=== PATIENT | male | born 1940 | race Caucasian/White ===

== ENCOUNTER 2019-07-27 02:18 | Observation (INO) | payer OTHER ==
[2019-07-27] VITALS (9 sets, daily range): BP systolic 98–141; BP diastolic 55–68
[~2019-07-27] VITALS: Ht 182.9 cm; Wt 108.9 kg
[~2019-07-27 02:18] MED LIST: ALLOPURINOL100 MG PO; DIGOXIN125 MCG PO; DOXAZOSIN MESYLA2 MG PO; FINASTERIDE5 MG PO; GLIPIZIDE5 MG PO; ISOSORBIDE MONO20 MG PO; LEVAQUIN500 MG PO; LISINOPRIL-HCT1 EAC1 PO; METOPROLOL SUCC50 MG PO; MONOPRIL PO; NIFEDICAL XL30 MG PO; NORCO 7.5-3251 EACH PO; OMEPRAZOLE20 MG PO; PLAVIX75 MG PO; SIMVASTATIN40 MG PO; XANAX0.5 MG PO
[2019-07-27] MEDS ORDERED: ASPIRIN 81 MG CHEW TAB PO ONE (02:30)
--- NOTE | 2019-07-27 02:30 | NUR ---
SONYA BP 121/74, FRIDA BP 133/74
[2019-07-27 02:35] LABS: BASOPHILS # (AUTO) 0.1 (0.0-0.1); BASOPHILS % 0.7 % (0.0-1.0); EOSINOPHILS # (AUTO) 0.3 (0.0-0.4); EOSINOPHILS % 4.9 % (0.0-6.0); HEMATOCRIT 48.4 % (38.2-49.6); HEMOGLOBIN 16.4 g/dL (14.0-18.0); LYMPHOCYTES # (AUTO) 2.5 (1.0-3.2); LYMPHOCYTES % 36.1 % (18.0-39.1); MEAN CORPUSCULAR HEMOGLOBIN 30.5 pg (28-32); MEAN CORPUSCULAR HGB CONC 33.9 g/dL (31-35); MEAN CORPUSCULAR VOLUME 90.1 fL (81-99); MONOCYTES # (AUTO) 0.7 (0.2-0.8); MONOCYTES % 10.8 % (4.4-11.3); NEUTROPHILS # (AUTO) 3.2 (2.1-6.9); NEUTROPHILS % 47.2 % (38.7-80.0); PLATELET COUNT 124 x10e3/uL (140-360); RED BLOOD COUNT 5.37 x10e6/uL (4.3-5.7)
[2019-07-27 02:41] LABS: INR 0.97; PROTHROMBIN TIME 13.1 seconds (11.9-14.5)
[2019-07-27 02:42] LABS: PARTIAL THROMBOPLASTIN TIME 33.5 seconds (23.8-35.5)
[2019-07-27] MEDS ORDERED: ONDANSETRON HCL INJ 2MG/ML 2ML 2 MG/ML VIAL IV STA (02:48)
--- NOTE | 2019-07-27 02:50 | NUR ---
Pt provided with urinal at bedside, informed of need to collect urine specimen for analysis, verbalized understanding.
[2019-07-27 02:53] LABS: ALANINE AMINOTRANSFERASE 13 IU/L (0-55); ALBUMIN 3.8 g/dL (3.5-5.0); ALBUMIN/GLOBULIN RATIO 1.2 (0.8-2.0); ALKALINE PHOSPHATASE 99 IU/L (40-150); ANION GAP 17.2 mmol/L (8-16); BLOOD UREA NITROGEN 16 mg/dL (7-26); BUN/CREATININE RATIO 15 (6-25); CALCIUM 9.2 mg/dL (8.4-10.2); CARBON DIOXIDE 23 mmol/L (22-29); CHLORIDE 107 mmol/L (98-107); CREATINE KINASE 60 IU/L (30-200); CREATININE, SERUM 1.06 mg/dL (0.72-1.25); EST GLOMERULAR FILTRATION RATE > 60 ML/MIN (60-); GLUCOSE 129 mg/dL (74-118); POTASSIUM 4.2 mmol/L (3.5-5.1); SODIUM 143 mmol/L (136-145)
[2019-07-27] MEDS ORDERED: MORPHINE SULFATE INJ 4 MG/ML INJ 1ML ONE (02:59)
[2019-07-27] MEDS ORDERED: MORPHINE SULFATE 5 MG/ML VIAL IV ONE (03:00)
--- NOTE | 2019-07-27 03:05 | Diagnostic Imaging Report ---
EXAMINATION: CHEST SINGLE (PORTABLE) COMPARISON: None INDICATION: Chest pain, epigastric pain ^CHEST PAIN ^[id number] ^0240 ^Y DISCUSSION: Frontal view of the chest obtained at 0242 hours. HEART AND MEDIASTINUM: The heart is top normal in size. LINES: None. LUNGS: Patchy right basilar airspace opacity. Left lung is clear. No interstitial edema. PLEURA: No pleural effusion or pneumothorax. BONES AND SOFT TISSUES: Median sternotomy wires are intact. The soft tissues are normal. IMPRESSION: Right basilar airspace opacity may represent atelectasis or pneumonia. Postoperative changes of the mediastinum. Signed by: Dr. Junaid Hooper MD on 07/27/2019 3:03 AM
[2019-07-27] MEDS ORDERED: IOPAMIDOL 370 MG/ML 200 ML INFUS..BTL INJ ONE ×2 (03:20→05:15)
[2019-07-27] MEDS ORDERED: SODIUM CHLORIDE 0.9% 50ML 50 ML ONE (03:20)
--- NOTE | 2019-07-27 03:55 | NUR ---
Pt reminded of need to obtain UA, verbalized understanding.
[2019-07-27] MEDS ORDERED: AZITHROMYCIN 500MG/NS 250 ML 250 ML IV STA (04:01)
[2019-07-27] MEDS ORDERED: CEFTRIAXONE SOD 1 GM/NS 50 ML 50 ML IV ONE (04:15)
[2019-07-27 04:40] LABS: BILIRUBIN,URINE NEGATIVE (NEGATIVE); CLARITY,URINE CLEAR (CLEAR); COLOR,URINE YELLOW (YELLOW); KETONES,URINE NEGATIVE (NEGATIVE); LEUKOCYTE ESTERASE ,URINE NEGATIVE (NEGATIVE); NITRITE,URINE NEGATIVE (NEGATIVE); PROTEIN,URINE DIPSTICK NEGATIVE (NEGATIVE); URINE UROBILINOGEN 4 mg/dL (0.2 - 1)
[2019-07-27 04:41] LABS: BACTERIA,URINE FEW /HPF; EPITHELIAL CELLS,URINE MODERATE /LPF; WBC,URINE (MAN) 0-5 /HPF (0-5)
--- NOTE | 2019-07-27 04:45 | Diagnostic Imaging Report ---
Chest, Abdomen and Pelvis CTA WITH AND WITHOUT IV CONTRAST. INDICATION: Chest pain COMPARISON: Chest radiograph of the same day. TECHNIQUE: The chest, abdomen and pelvis were scanned utilizing a multidetector helical scanner from the thoracic inlet to the pubic symphysis before and after administration of IV contrast. Coronal and sagittal reformations were obtained. 3D post-processing of the images was performed, and the post-processed images were used in interpretation. CTA dissection protocol was performed. IV CONTRAST: 100mL of Isovue 370 ORAL CONTRAST: Water RADIATION DOSE: Total DLP: 1864.8 mGy*cm FINDINGS: I agree with the findings provided in the preliminary report. There are no additional significant findings to report. IMPRESSION: No aortic dissection or aneurysm. No central PE. Lingular 4mm pulmonary nodule. If the patient is high risk, followup chest CT is optional at 12 months. If the patient is low risk, no further follow-up imaging is necessary. PRELIMINARY REPORT: 1. No evidence of mural hematoma, displaced intimal calcification, or retroperitoneal hemorrhage. 2. No evidence of aortic dissection or aneurysmal dilatation. No occluded arterial vessels in the chest, abdomen, or pelvis. 3. 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 The heart is enlarged with subendothelial calcifications of the left ventricle, the result of remote infarct. Mild burden of atherosclerotic plaque throughout the arterial system. 4. No filling defects in the pulmonary arteries. 5. Diffuse pulmonary hyperinflation suggestive of small airways disease. Subsegmental atelectasis in the right lower lobe. Noncalcified nodule in the lingula measuring 4 mm. 6. Single right kidney. No calculus. Lower pole cyst measures 9 mm. There is excreted contrast in the collecting system without filling defect. The ureter is normal in diameter throughout its course. 7. No evidence for bowel obstruction or inflammation. No CT evidence of mesenteric ischemia. 8. Prostate hypertrophy and bladder wall thickening suggestive of outlet obstruction. 9. Nonspecific paracaval lymph nodes measure up to 10 mm. 10. Low attenuating lesion in the proximal pancreas tail measures 3 to 4 mm, either a cyst or IPMN. No pancreas duct dilatation. 11. Sebaceous cyst in the posterior pelvis is partially calcified and measures 17 mm. 12. A full report will be dictated later in the A.M. Signed by: Anish Edwards MD on 07/27/2019 12:19 PM
--- OUTSIDE RECORDS SUMMARY | 2019-07-27 05:01 | XMS REPORT ---
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 Allergies, Adverse Reactions, Alerts This patient has no known allergies or adverse reactions. Medications This patient has no known medications. Results Test Description Test Time Test Comments Text Results Atomic Results Result Comments CHEST SINGLE (PORTABLE) 2019-07-27 02:58:00 [facility] [address] [place] [address] Patient Name: BAILEY RICHARDS MR #: [id number] : 1940 Age/Sex: 79/M Req #: [id number] Adm Physician: Ordered by: SABIHA TANG DO Report #: [id number] Location: ER Room/Bed: Procedure: [id number] DX/CHEST SINGLE (PORTABLE) Exam Date: 07/27/19 Exam Time: 0240 REPORT STATUS: Signed EXAMINATION: CHEST SINGLE (PORTABLE) COM PARISON: None INDICATION: Chest pain, epigastric pain CHEST PAIN [id number] 0240 Y DISCUSSION: Frontal view of the chest obtained at 0242 hours. HEART AND MEDIASTINUM: The heart is top normal in size. LINES: None. LUNGS: Patchy right basilar airspace opacity. Left lung is clear. No interstitial edema. PLEURA: No pleural effusion or pneumothorax. BONES AND SOFT TISSUES: Median sternotomy wires are intact. The soft tissues are normal. IMPRESSION: Right basilar airspace opacity may represent atelectasis or pneumonia. Postoperative changes of the mediastinum. Signed by: Dr. Mandy Hooper MD on 07/27/2019 3:03 AM Dictated By: MANDY HOOPER MD 2 Transcribed By: ARLINE on 07/27/19302 COPY TO: SABIHA TANG DO
[2019-07-27] MEDS ORDERED: SODIUM CHLORIDE 0.9% 50ML 100 ML ONE (05:15)
[2019-07-27 06:43] LABS: CREATINE KINASE MB 0.8 ng/mL (0-5.0)
[2019-07-27] MEDS ORDERED: GLIPIZIDE5 MG PO (09:28)
[2019-07-27] MEDS ORDERED: GLIPIZIDE 5 MG TAB PO PRN (14:15)
[2019-07-27] MEDS ORDERED: DEXTROSE 50% SYRINGE 50 ML IV PRN (15:30)
[2019-07-27] MEDS ORDERED: METOPROLOL SUCCINATE 50 MG TAB XL PO SCH (17:00)
[2019-07-27] MEDS ORDERED: ENOXAPARIN 30 MG/0.3 ML SYR SC SCH (17:00)
[2019-07-27 19:25] LABS: CREATINE KINASE 50 IU/L (30-200)
--- NOTE | 2019-07-27 20:09 | NUR ---
RECEIVED PT IN BED AOX3 .RESPIRATIONS ARE EVEN AND UNLABORED .DENIES PAIN .PT REFUSED BED ALARM CALL LIGHT WITH IN REACH .CONTINUE TO MONITOR
[2019-07-27] MEDS ORDERED: SIMVASTATIN 40 MG TAB PO SCH (21:00)
--- NOTE | 2019-07-27 22:15 | History and Physical ---
CHIEF COMPLAINT: Abdominal pain. HISTORY OF PRESENT ILLNESS: This is a 79-year-old male, very-very poor historian, history of significant cardiac disease status post CABG in the past. He presents to the ED with complaints of abdominal pain and questionable chest pain. The patient reports he was in his usual state of health and suddenly began to have excruciating abdominal pain. He reports he had similar findings about a month ago, which he was at [facility]. He reports at that time it was chest pain. They said they did some blood work and was discharged to home. Apparently, he was admitted in the hospital. He now presents with similar findings. He currently is a very poor historian. He states it is epigastric pain, then he states to me chest pain, then he states to me shoulder pain, then he states to me it could be back pain. He states that he could not describe it. He does not know how to describe it either a sharp pain or neuropathic pain. After further interview, it seems that the patient is complaining more of a lower lumbar back pain. He states that it starts there and then kind of radiates to his abdomen. No reports of any nausea, vomiting, or any fever at home. The patient is seen and evaluated at bedside on the medical floor. He is currently doing well with no other issues at this time. REVIEW OF SYSTEMS: Pertinent positives: Lumbar back pain that radiates to his abdomen. Pertinent negatives: Denies any palpitation, nausea, vomiting, diarrhea, dysuria, hematuria, frequency, urgency, lightheadedness, dizziness, headaches, shortness of breath, cough, congestion, fever, or any other complaints. The rest of 14-point review of systems have been reviewed with the patient and are negative. ALLERGIES: NO KNOWN DRUG ALLERGIES. HOME MEDICATIONS: 1. Plavix. 2. Digoxin. 3. Doxazosin. 4. Finasteride. 5. Glipizide. 6. Isosorbide mononitrate. 7. Metoprolol. 8. Nifedipine. 9. Omeprazole. 10. Simvastatin. 11. Xanax. 12. Allopurinol. PAST MEDICAL HISTORY: Has history of coronary artery disease with coronary artery bypass grafting in the past, type 2 diabetes, hypertension, acid reflux, hyperlipidemia. PAST SURGICAL HISTORY: Had CABG in the past. SOCIAL HISTORY: No drugs. No alcohol. Does not smoke. FAMILY HISTORY: Hypertension, diabetes. PHYSICAL EXAMINATION: VITAL SIGNS: Temperature is 98, pulse 76, respiratory rate is 20, blood pressure 120/61, pulse ox 96% on room air. LABORATORY FINDINGS: Show white count 6.8, hemoglobin 16, hematocrit 48, platelets of 124. Coagulation; PT 13, INR 0.97, PTT 33. Chemistry, sodium 143, potassium 4.2, chloride 107, bicarb 23, anion gap of 17. BUN is 16, creatinine is 1, glucose is 129, calcium is 9.2, total bilirubin is 2.2. LFTs within normal range. Troponins are negative. BNP 185. Total protein 6.9, albumin is 3.8. Urinalysis was negative. Alcohol level was negative. IMAGING STUDIES: Chest x-ray, right basilar airspace opacity measures atelectasis or pneumonia. CTA chest, thorax including abdomen and pelvis reports no evidence of a mural hematoma displacing intimal calcification or retroperitoneal hemorrhage. No evidence of aortic dissection or aneurysmal dilatation. No fluid or arterial vessels in the chest, abdomen, or pelvis . There are some postoperative changes of further cardiac bypass. No filling defects in the pulmonary arteries. Diffuse pulmonary hyperinflation suggestive of small airway disease. There is some atelectasis seen. There is some single right kidney. No calculus. There is a lower pole cyst seen. No evidence of bowel obstruction or inflammation. No CT evidence of mesenteric ischemia. Prostate benign prostatic hyperplasia with bladder-wall thickening suggestive of outlet obstruction. There is a paracaval lymph node measuring 10 mm. It needs outpatient followup as an outpatient. Also shows a pancreatic cyst. Needs an outpatient followup, which I discussed with the patient. OBJECTIVE: GENERAL: Not in acute distress, alert and oriented x3. Cooperative upon examination. HEENT: Head is normocephalic, atraumatic. Eyes; pupils are equal and reactive to light bilaterally. Extraocular movements are intact bilaterally. NECK: Supple. Good range of motion. Throat, no evidence of any erythema or exudates in the posterior pharynx. Has poor dentition. PULMONARY: Clear to auscultation bilaterally. No wheezing, rales, or rhonchi. No crackles appreciated. CARDIOVASCULAR: Positive S1 and S2. No murmurs, rubs, or gallops appreciated. ABDOMEN: Soft, nondistended, nontender to palpation. Bowel sounds present. MUSCULOSKELETAL: Strength is 5/5 throughout. No evidence of any muscle deficits on examination. No weakness appreciated. NEUROLOGIC: Cranial nerves 2 through 12 grossly intact. No evidence of any neurologic deficits on exam. SKIN: Intact. Warm to touch. Good cap refill. PSYCHIATRIC: Normal affect and mood. EXTREMITIES: No edema. Good range of motion throughout. IMPRESSION: 1. Chest pain, likely atypical in nature, but has a history of coronary artery disease in the past. 2. Lumbar back pain, likely with radiculopathy that radiates to his abdomen. 3. Type 2 diabetes. 4. Benign prostatic hyperplasia. 5. Pancreatic cyst. Needs further workup as an outpatient. 6. Hypertension. PLAN: At this time, after interviewing the patient more closely, it seemed that his pain is likely a radicular pain, likely from lower lumbar back pain that radiates to his abdomen. We will trend his cardiac enzymes for now, which so far have been found to be negative. Cardiology was consulted for further management and care. He is on cardioprotective medications. I did order an MRI of the lumbar spine to further evaluate this further. He is currently doing very well with no other issues. We are going to resume same home medications with no changes. Continue with same antihypertensive medications. Get PT and OT evaluation. Put on Lovenox for DVT prophylaxis. Has 1st pancreatic cyst. Needs outpatient followup with GI, which I discussed this with the patient very closely and thoroughly and he verbalized understanding to follow up with a GI specialist. As for his BPH, he is already on finasteride and doxazosin. We will continue to monitor this very closely per bladder scans p.r.n. PT, OT evaluation. Lovenox for DVT prophylaxis. Discussed plan of care with the patient at bedside with nursing staff present. MD SAM Boles/MODL /[id number]
[2019-07-28 00:39] VITALS: BP 114/71
[2019-07-28 04:00] VITALS: BP 122/84
[2019-07-28 05:58] LABS: CHOL/HDL RATIO 4.1 (3.9-4.7)
--- NOTE | 2019-07-28 06:25 | NUR ---
PT RESTED DURING THE NIGHT .DENIES PAIN .CALL LIGHT WITH EACH .CONTINUE TO MONITOR
--- NOTE | 2019-07-28 07:00 | NUR ---
bedside rounds done. pt is alert resting in bed, no s/s of distress. call light within reach and instructed PT to call RN for help.
--- NOTE | 2019-07-28 07:28 | NUR ---
BEDSIDE REPORT GIVEN TO THE ONCOMING NURSE
[2019-07-28] MEDS ORDERED: PANTOPRAZOLE SOD 40 MG TABEC PO SCH (07:30)
--- NOTE | 2019-07-28 08:51 | Diagnostic Imaging Report ---
MRI SPINE LUMBAR WO HISTORY: Lumbar back pain COMPARISON: CTA of the abdomen/pelvis 07/27/2019 TECHNIQUE: Sagittal T1, sagittal T2, sagittal STIR, axial T2, coronal T2, and axial proton density weighted images of the lumbar spine were obtained without contrast. DISCUSSION: Number of non-rib bearing lumbar vertebral bodies: 5. Alignment: Normal lordosis. Mild lumbar levoscoliosis is centered at L3-L4. Vertebrae: No definite evidence for acute fracture or neoplasm. Mild compression deformity of the T11 vertebral body is not associated with significant marrow edema or retropulsion; this is likely chronic. A few scattered small nodular T1 hyperintense vertebral body lesions are benign hemangiomas. Conus medullaris: Normal, ends at L2. Cauda equina: No masses or arachnoiditis. Posterior paraspinal muscles: Well preserved. Posterior incision signal changes. Soft tissues: Approximately 1.7 cm hypointense nodular cutaneous/subcutaneous lesion in the right paramedian back at L4-L5 may be an inclusion cyst. The left kidney is absent. A few small T2 hyperintense lesions in the right kidney are likely cysts. Mild to moderate multilevel disc degeneration is most prominent at L5-S1. There are nonspecific minimal inflammatory endplate changes on the right at L3-L4 and at T10-T11. T10-T11: Minimal disc bulge without significant canal stenosis. The neural foramina are incompletely imaged. T11-T12: Mild canal stenosis due to disc bulge. No significant foraminal stenosis. T12-L1: Patent canal and foramina. L1-L2: Mild canal stenosis due to disc bulge and ligamentum flavum thickening. No significant foraminal stenosis. L2-L3: Mild canal stenosis due to disc bulge and ligamentum flavum thickening. Both lateral recesses are slightly effaced. Moderate right and mild left foraminal stenoses due to disc bulge and facet arthrosis. L3-L4: Moderate canal stenosis due to disc bulge and ligamentum flavum thickening. Both lateral recesses are effaced. Severe right and mild to moderate left foraminal stenoses due to disc bulge and facet arthrosis. The exiting right L3 nerve root is likely impinged. L4-L5: Laminectomy level without significant central canal stenosis. Moderate to severe right and mild to moderate left foraminal stenoses due to disc bulge and facet arthrosis. The exiting right L4 nerve root is likely impinged. L5-S1: Mild canal stenosis due to disc bulge and superimposed right central disc protrusion. The right lateral recess is effaced and the descending right S1 nerve root is impinged. Mild to moderate right and moderate left foraminal stenoses due to disc bulge and facet arthrosis. IMPRESSION: 1. Mild to moderate multilevel disc degeneration, most prominent at L5-S1, with mild lumbar levoscoliosis. Nonspecific minimal inflammatory endplate changes at L3-L4 and T10-T11. 2. Laminectomy changes at L4-L5. 3. Multilevel degenerative canal stenoses - moderate at L3-L4. 4. Small right L5-S1 central disc protrusion impinges upon the descending right S1 nerve root. 5. Multilevel degenerative foraminal stenoses - moderate on the right at L2-L3: severe on the right at L3-L4; moderate to severe on the right at L4-L5; moderate on the left at L5-S1. Signed by: Dr. Oliver Mendoza M.D. on 07/28/2019 8:48 AM
[2019-07-28] MEDS ORDERED: ISOSORBIDE MONONITRATE 20 MG TAB PO SCH (09:00)
[2019-07-28] MEDS ORDERED: METOPROLOL SUCCINATE 25 MG TAB XL PO SCH (09:00)
[2019-07-28] MEDS ORDERED: CLOPIDOGREL BISULFATE 75 MG TAB PO SCH (09:00)
[2019-07-28] MEDS ORDERED: NIFEDIPINE CR 30 MG TAB PO SCH (09:00)
[2019-07-28] MEDS ORDERED: FINASTERIDE 5 MG TAB PO SCH (09:00)
[2019-07-28] MEDS ORDERED: DOXAZOSIN MESYLATE 2 MG TAB PO SCH (09:00)
[2019-07-28] MEDS ORDERED: DIGOXIN 0.125 MG TAB PO SCH (09:00)
[2019-07-28 10:01] VITALS: BP 139/88
--- NOTE | 2019-07-28 13:28 | Consultation ---
DATE OF CONSULTATION: 07/28/2019 Cardiology Consult HISTORY OF PRESENT ILLNESS: Mr. Deacon Muniz is a 79-year-old male with primary history of CAD with previous CABG, hypertension, diabetes, hyperlipidemia, and GERD, admitted complaining of excruciating pain that started in the mid back, radiating to the lower chest and upper abdominal area, aggravated with changing from a sitting to a lying position while he was in his recliner at home. The pain lasted about 3 hours, which is unrelieved with hydrocodone he took one pill. The patient reports was profusely sweating and nauseated, but denies dizziness or palpitations. PAST MEDICAL HISTORY: CAD with previous CABG, hypertension, diabetes, hyperlipidemia, GERD, Gout, arthritis, and BPH. PAST SURGICAL HISTORY: He had a lower back surgery. FAMILY HISTORY: Both parents are , of heart attacks. SOCIAL HISTORY: He is a non tobacco, non alcohol, or recreational drug use. ALLERGIES: NO KNOWN ALLERGIES. HOME MEDICATIONS: Includes metoprolol succinate 50 mg every day or daily, nifedipine 30 mg daily. He also takes digoxin 0.125 mg daily. He takes clopidogrel or Plavix 75 mg daily. He also takes isosorbide 20 mg daily and glipizide 5 mg daily. Doxazosin 2 mg daily, allopurinol 100 mg daily, omeprazole 20 mg daily, simvastatin 40 mg, finasteride 5 mg daily. PHYSICAL EXAMINATION: VITAL SIGNS: Current vital signs include temperature 97.9, heart rate 63, 20 of respiration, 139/88 blood pressure, 96% on room air. GENERAL: The patient is well developed, well nourished, no acute respiratory distress. SKIN: Normal in appearance, texture, and temperature, warm and dry. HEENT: Cranium is normocephalic and atraumatic. His pupils are equally reactive to light and accommodation. Sclerae anicteric. Ears are normal. Throat is clear. NECK: Supple. Full range of motion. No cervical lymphadenopathy. No thyromegaly. No JVD. RESPIRATORY: Normal respiratory effort. LUNGS: Clear to auscultation bilaterally with diminished or decreased air entry at the bases. CARDIOVASCULAR: S1 and S2 audible. Regular rate and rhythm. No significant murmurs heard. GASTROINTESTINAL: Soft, nontender, nondistended. Bowel sounds are present. EXTREMITIES: Trace edema to bilateral lower extremities. Pulses are palpable +1 throughout. NEUROLOGIC: Motor and sensory examination of the upper and lower extremities normal. Reflexes are normal and symmetrical bilaterally. IMPRESSION AND PLAN: The patient Cristy is a 79-year-old, admitted for excruciating mid back pain that radiated to the lower chest area and upper abdominal area, likely atypical in nature. Troponin x3 sets were negative, and EKG was nonischemic, although 2nd EKG showed Mobitz type 2 and another one showed first-degree AV block. PLAN: 1. Echocardiogram. 2. Discontinue digoxin and decrease dose of metoprolol p.o. Please continue to monitor for progression of heart block. 3. Further recommendation depends on clinical course. We will continue to follow. Thank you for the consultation. Dictated by Estela Campbell NP Benson De Dios MD WZA/SONA /[id number]
--- NOTE | 2019-07-29 02:31 | Discharge Summary ---
PRIMARY CARE PHYSICIAN: Dr. Mikayla Bauer. ENTRY LEVEL RECEPTIONIST: Dr. Benson De Dios. FINAL DIAGNOSIS: Midback pain radiating to the front area consistent with degenerative disk disease in the thoracic and lumbar spine. SUMMARY: This is a 79-year-old male with radiating pain. The patient is pain free now. No chest pain. No shortness of breath. The patient stating that the pain is burning sensation from the mid back area and also low back area radiating to the front area. The patient had workup done. Negative for cardiac problem. The patient has been cleared by Dr. Benson De Dios. I discussed with the patient at length. He did have an MRI of the lumbar spine showed consistent with degenerative disk disease with foraminal stenosis. He did have laminectomy in the past. He may have T-spine problem as well, but currently the patient is pain free. Therefore, no further workup needed at this time. The patient was at [employer] when he happened to have the pain. I discussed with the patient at length. We will start the patient on Neurontin 100 mg 3 times a day and Tylenol No.3 as needed for pain. The patient will need pain management and further workup as an outpatient. I discussed with the patient at length. The patient is stable and discharged home today. MD SAM Barnhart/MODL /[id number]
== END 2019-07-28 11:14 | disposition home or self-care (01) ==
LOC: ER 02:18 → ERHOLD 04:58 → MED/SURG2 06:40
PROVIDERS: ADMIT Internal Medicine; ATTEND Internal Medicine
DX: R07.89 Other chest pain (principal); M47.816 Spondylosis without myelopathy or radiculopathy, lumbar region; E11.9 Type 2 diabetes mellitus without complications; N40.0 Benign prostatic hyperplasia without lower urinary tract symptoms; I10 Essential (primary) hypertension; K86.2 Cyst of pancreas; M54.5 Low back pain; I25.10 Atherosclerotic heart disease of native coronary artery without angina pectoris; Z95.1 Presence of aortocoronary bypass graft; K21.9 Gastro-esophageal reflux disease without esophagitis; E78.5 Hyperlipidemia, unspecified; Z82.49 Family history of ischemic heart disease and other diseases of the circulatory system; Z87.442 Personal history of urinary calculi; Q60.0 Renal agenesis, unilateral; N28.1 Cyst of kidney, acquired
CPT/HCPCS: 36415; 71045; 71275; 72148; 74174; 80053; 80061; 80320; 81001; 82550; 82553; 82948; 83880; 84484; 85025; 85610; 85730; 93005; 99285; G0378; J0456; J0696; J1650; J2270; J2405; Q9967

== ENCOUNTER → 2019-09-03 | Day surgery (SDC) | payer OTHER ==
[2019-08-24 16:59] LABS: BASOPHILS # (AUTO) 0.1 (0.0-0.1); BASOPHILS % 0.8 % (0.0-1.0); EOSINOPHILS # (AUTO) 0.5 (0.0-0.4); EOSINOPHILS % 5.7 % (0.0-6.0); HEMATOCRIT 46.6 % (38.2-49.6); HEMOGLOBIN 15.6 g/dL (14.0-18.0); LYMPHOCYTES % 24.9 % (18.0-39.1); MEAN CORPUSCULAR HEMOGLOBIN 30.8 pg (28-32); MEAN CORPUSCULAR HGB CONC 33.5 g/dL (31-35); MEAN CORPUSCULAR VOLUME 92.1 fL (81-99); MONOCYTES # (AUTO) 0.7 (0.2-0.8); MONOCYTES % 8.7 % (4.4-11.3); NEUTROPHILS # (AUTO) 4.7 (2.1-6.9); NEUTROPHILS % 59.4 % (38.7-80.0); PLATELET COUNT 155 x10e3/uL (140-360); RED BLOOD COUNT 5.06 x10e6/uL (4.3-5.7); RED CELL DISTRIBUTION WIDTH 13.8 % (11.7-14.4)
[2019-08-24 17:14] LABS: ANION GAP 13.2 mmol/L (8-16); CALCIUM 9.5 mg/dL (8.4-10.2); CREATININE, SERUM 1.32 mg/dL (0.72-1.25); POTASSIUM 4.2 mmol/L (3.5-5.1)
[~2019-09-03] MED LIST changes: +BUPIVACAINE HC 0.75% PF 10ML VIAL INJ ONE; +CHONDR SU A NA/HYALUR SOD 1 EACH KIT IO ONE; +CYCLOPENTOLATE HCL 2% OPTH SOLN 2 ML BTL OP ONE; +EPINEPHRINE HCL 1:1000 1ML 1 MG/ML AMP ONE; +GATIFLOXACIN(OPTH) 5 ML LIQD ONE; +LIDOCAINE 2% /EPINEPHRINE 20 ML SDV INJ ONE; +LIDOCAINE HCL 2% LOCAL INJ 5 ML SDV VIAL INJ ONE; +LIDOCAINE HCL-PF 4% 40 MG/1 ML 5ML AMP ONE; +PANTOPRAZOLE SO40 MG PO; +PHENYLEPHRINE HCL 2 ML DROPS ONE; +PILOCARPINE HCL(OPTH) 15 ML LIQD ONE; +POVIDONE IODINE 5% (OPTH) 30 ML BTL ONE; +PROPOFOL IV EMULSION 10 MG/ML 20 ML VIAL ONE; +TESTOSTERO100 MG/1 M INJ; +TOBRAMYCIN/DEXAMETHASONE(OPTH) 3.5 GM TUBE ONE
[2019-09-03 10:25] VITALS: BP 144/76
== END | disposition home or self-care (01) ==
LOC: OR 06:36
PROVIDERS: ATTEND Ophthalmology
DX: H25.11 Age-related nuclear cataract, right eye (principal); I10 Essential (primary) hypertension; E11.9 Type 2 diabetes mellitus without complications; I44.4 Left anterior fascicular block; M54.9 Dorsalgia, unspecified; M54.2 Cervicalgia; I25.810 Atherosclerosis of coronary artery bypass graft(s) without angina pectoris; I25.2 Old myocardial infarction; N20.0 Calculus of kidney; Z79.02 Long term (current) use of antithrombotics/antiplatelets; Z79.84 Long term (current) use of oral hypoglycemic drugs; Z87.891 Personal history of nicotine dependence; Z95.1 Presence of aortocoronary bypass graft
CPT/HCPCS: 36415; 80048; 82948; 85025; J0171; J2001; V2632

== ENCOUNTER → 2019-12-10 | Day surgery (SDC) | payer OTHER ==
[2019-12-07 12:52] LABS: BASOPHILS # (AUTO) 0.1 (0.0-0.1); EOSINOPHILS # (AUTO) 0.3 (0.0-0.4); EOSINOPHILS % 4.1 % (0.0-6.0); HEMATOCRIT 50.6 % (38.2-49.6); HEMOGLOBIN 16.5 g/dL (14.0-18.0); LYMPHOCYTES % 24.7 % (18.0-39.1); MEAN CORPUSCULAR HGB CONC 32.6 g/dL (31-35); MONOCYTES # (AUTO) 0.7 (0.2-0.8); MONOCYTES % 8.5 % (4.4-11.3); NEUTROPHILS % 61.2 % (38.7-80.0); PLATELET COUNT 110 x10e3/uL (140-360); RED CELL DISTRIBUTION WIDTH 13.7 % (11.7-14.4)
[2019-12-07 13:05] LABS: ANION GAP 14.9 mmol/L (8-16); CALCIUM 9.1 mg/dL (8.4-10.2); CREATININE, SERUM 1.25 mg/dL (0.72-1.25); POTASSIUM 3.9 mmol/L (3.5-5.1)
[~2019-12-10] MED LIST changes: +BALANCED SALT SOLN (OPTH) 15 ML BTL IO ONE; +FENTANYL CITRATE/PF 100MCG/2 ML INJ ONE; +MIDAZOLAM HCL 2 MG/2 ML VIAL ONE; +muscle relaxer PO
[2019-12-10 09:40] VITALS: BP 111/75
== END | disposition home or self-care (01) ==
LOC: OR 05:24
PROVIDERS: ATTEND Ophthalmology
DX: H25.12 Age-related nuclear cataract, left eye (principal); F41.9 Anxiety disorder, unspecified; I25.810 Atherosclerosis of coronary artery bypass graft(s) without angina pectoris; E11.9 Type 2 diabetes mellitus without complications; K21.9 Gastro-esophageal reflux disease without esophagitis; I49.3 Ventricular premature depolarization; I10 Essential (primary) hypertension; Z01.810 Encounter for preprocedural cardiovascular examination; Z01.812 Encounter for preprocedural laboratory examination; Z11.59 Encounter for screening for other viral diseases; Z79.02 Long term (current) use of antithrombotics/antiplatelets; Z79.84 Long term (current) use of oral hypoglycemic drugs; Z95.1 Presence of aortocoronary bypass graft
CPT/HCPCS: 36415; 80048; 82948; 85025; 93005; J0171; J2001; J2250; J3010; U0002; V2632

== ENCOUNTER 2020-04-12 16:37 | Inpatient (IN) | payer OTHER ==
[~2020-04-12] VITALS: Ht 182.9 cm; Wt 89.8 kg
[~2020-04-12 16:37] MED LIST changes: -BALANCED SALT SOLN (OPTH) 15 ML BTL IO ONE; -BUPIVACAINE HC 0.75% PF 10ML VIAL INJ ONE; -CHONDR SU A NA/HYALUR SOD 1 EACH KIT IO ONE; -CYCLOPENTOLATE HCL 2% OPTH SOLN 2 ML BTL OP ONE; -EPINEPHRINE HCL 1:1000 1ML 1 MG/ML AMP ONE; -FENTANYL CITRATE/PF 100MCG/2 ML INJ ONE; -GATIFLOXACIN(OPTH) 5 ML LIQD ONE; -LIDOCAINE 2% /EPINEPHRINE 20 ML SDV INJ ONE; -LIDOCAINE HCL 2% LOCAL INJ 5 ML SDV VIAL INJ ONE; -LIDOCAINE HCL-PF 4% 40 MG/1 ML 5ML AMP ONE; -MIDAZOLAM HCL 2 MG/2 ML VIAL ONE; -PHENYLEPHRINE HCL 2 ML DROPS ONE; -PILOCARPINE HCL(OPTH) 15 ML LIQD ONE; -POVIDONE IODINE 5% (OPTH) 30 ML BTL ONE; -PROPOFOL IV EMULSION 10 MG/ML 20 ML VIAL ONE; -TOBRAMYCIN/DEXAMETHASONE(OPTH) 3.5 GM TUBE ONE
[2020-04-12] MEDS ORDERED: SODIUM CHLORIDE 0.9% 1000ML 1,000 ML IV ONE (16:41)
--- NOTE | 2020-04-12 16:55 | Emergency Department Note ---
History of Present Illnes History of Present Illness Chief Complaint: Abdominal Complaints History of Present Illness This is a 80 year old male sent by Dr Oleksandr Rand for evaluation of abd pain. . Arrival Mode: Car Onset (how long ago): day(s) Location: epigastric Radiation: Reports non-radiation Severity: moderate Onset quality: gradual Duration (how long): hour(s) Timing of current episode: constant Progression: worsening Relieving factors: none Exacerbating factors: none Associated symptoms: Reports weakness Previous service: one or more referrals, re-evaluation Past Medical/Family History Physician Review I have reviewed the patient's past medical and family history. Any updates have been documented here. Past Medical History Recent Fever: No Clinical Suspicion of Infectio: No New/Unexplained Change in Ment: No Past Medical History: [place], CAD Other Medical History: ONLY RT KIDNEY FUNCTIONING ACUTE RENAL FAILURE Past Surgical History: CABG Other Surgery: KIDNEY STENTS PILONIDAL CYST REMOVAL FOOT SX Social History Smoking Cessation: Never Smoker Alcohol Use: None Any Illegal Drug Use: No Other Last Tetanus: UTD Review of Systems Review of Systems Constitutional: Reports no symptoms EENTM: Reports no symptoms Cardiovascular: Reports no symptoms Respiratory: Reports no symptoms Gastrointestinal: Reports abdominal pain Genitourinary: Reports no symptoms Musculoskeletal: Reports no symptoms Integumentary: Reports no symptoms Neurological: Reports no symptoms Psychological: Reports no symptoms Endocrine: Reports no symptoms Hematological/Lymphatic: Reports no symptoms Physical Exam Related Data Allergies: Coded Allergies: No Known Allergies (Unverified , 01/13/15) Vital signs reviewed: Yes Physical Exam CONSTITUTIONAL Constitutional: Present well-developed, Present well-nourished HENT HENT: Present normocephalic, Present atraumatic, Present oropharynx clear/moist, Present nose normal HENT L/R: Present left ext ear normal, Present right ext ear normal EYES Eyes: Reports PERRL, Reports scleral icterus NECK Neck: Present ROM normal PULMONARY Pulmonary: Present effort normal, Present breath sounds normal CARDIOVASCULAR Cardiovascular: Present regular rhythm, Present heart sounds normal, Present capillary refill normal, Present normal rate GASTROINTESTINAL Abdominal: Present soft, Present nontender, Present bowel sounds normal GENITOURINARY Genitourinary: Present exam deferred SKIN Skin: Present warm, Present dry MUSCULOSKELETAL Musculoskeletal: Present ROM normal NEUROLOGICAL Neurological: Present alert, Present oriented x 3, Present no gross motor or sensory deficits PSYCHOLOGICAL Psychological: Present mood/affect normal, Present judgement normal Results Laboratory Lab results reviewed: Yes Imaging Imaging results reviewed: Yes Impressions [place] [address] Patient Name: BAILEY RICHARDS MR #: [id number] : 1940 Age/Sex: 80/M Req #: [id number] [facility] Physician: NELSON MOFFETT MD Ordered by: DAVID MOFFETT DO Report #: [id number] Location: MED/SURG Room/Bed: [facility] [place] Procedure: [id number] US/US GALLBLADDER Exam Date: 04/12/20 Exam Time: 1750 REPORT STATUS: Signed EXAM: Right Upper Quadrant Ultrasound with Doppler INDICATION: obstructive jaundice COMPARISON: CT chest on 07/27/2019. TECHNIQUE: Transverse and longitudinal images of the right upper abdomen were obtained. Grayscale, color Doppler and spectral waveform analysis of the hepatic vasculature and splenic vein were performed. FINDINGS: Liver: Size: 15.6 cm in the right midclavicular line, normal Appearance: Normal echogenicity, smooth contour Mass: No focal masses Gallbladder: Stones/Sludge: None Wall: 0.3 cm Appearance: No pericholecystic fluid or hydrops. Sonographic Lynne's Sign: Negative Bile Ducts: Intrahepatic Ducts: No dilatation Extrahepatic Ducts: Common bile duct measures 1.2 cm, no dilatation Pancreas: Not well visualized. Right Kidney: Size: 13.2 x 5.7 x 5.7 cm Echogenicity: Normal Parenchymal thickness: Normal Collecting system: No hydronephrosis Stones: None Cyst/Mass: There are cysts in the right kidney which measure 1.6 x 1.3 x 1.4 cm and 1.0 x 0.7 x 0.8 cm Vessels: Main Portal Vein: Diameter: 1.2 cm, normal. Normal flow direction. Aorta: Visualized portions are normal Inferior Vena Cava: Visualized portions are normal Free Fluid: No ascites or pleural effusion IMPRESSION: Distended gallbladder with mildly thickened montelongo and dilated common bile duct. Constellation of findings are suggestive of acute cholecystitis. No evidence of cholelithiasis or choledocholithiasis. However, recommend further evaluation with MRCP or ERCP. LV hyper to kid LV hypo to spleen Slaughter hyper to LV Liver Male < 16 cm Female < 15 cm Kidneys: NL 9-12 cm, <13 cm Spleen < 12 cm CBD < 7 mm CHD < 4-5 mm GB Wall < 3 mm Hydrops > 10 x 5 cm PV < 13 mm Panc. duct 3-2-1 Signed by: Karen Girard MD on 04/12/2020 7:15 PM Dictated By: KAREN GIRARD MD 14 Transcribed By: ARLINE on 04/12/201914 COPY TO: DAVID MOFFETT DO~ Assessment & Plan Medical Decision Making MDM Diff dx : gallstone pancreatitis, choledochelithiasis, choleycystitis Assessment & Plan Final Impression: (1) Obstructive jaundice (2) Cholecystitis (3) UTI (urinary tract infection) Depart Disposition: ADMITTED Home Meds Reported Medications Nifedipine (NIFEDIPINE ER) 30 Mg Tab.er.24, 30 MG PO DAILY 04/12/20 Testosterone Cypionate (TESTOSTERONE CYPIONATE) 100 Mg/1 Ml Vial, 0.5 ML INJ MONTHLY 09/02/19 Pantoprazole Sodium* (PROTONIX) 40 Mg Tablet.dr, 40 MG PO DAILY, TAB 09/02/19 Glipizide (GLIPIZIDE) 5 Mg Tablet, 5 MG PO DAILY PRN for HIGH BLOOD SUGAR, TAB 07/27/19 Metoprolol Succinate (METOPROLOL SUCCINATE) 50 Mg Tab.er.24h, 25 MG PO HS, MG 10/18/14 Allopurinol (ALLOPURINOL) 100 Mg Tablet, 100 MG PO DAILY 06/30/12 Doxazosin Mesylate (DOXAZOSIN MESYLATE) 2 Mg Tablet, 2 MG PO HS 06/30/12 Isosorbide Mononitrate (ISOSORBIDE MONONITRATE) 20 Mg Tablet, 20 MG PO TID 06/30/12 Simvastatin (SIMVASTATIN) 40 Mg Tablet, 40 MG PO DAILY 06/30/12 Clopidogrel Bisulfate* (PLAVIX) 75 Mg Tablet, 75 MG PO DAILY 06/30/12 Finasteride (FINASTERIDE) 5 Mg Tablet, 5 MG PO HS 06/30/12 Alprazolam (XANAX) 0.5 Mg Tablet, 0.5 MG PO DAILY 06/30/12 Digoxin (DIGOXIN) 125 Mcg Tablet, 125 MCG PO DAILY 06/30/12 Discontinued Reported Medications [muscle relaxer] No Conflict Check, 40 MG PO BID 12/10/19 Medications in the ED Piperacillin Sod/ Tazobactam Sod 50 ml @ 50 mls/hr Q6H IV ; Start 04/12/20 at 17:00; Stop 04/19/20 at 16:59 Sodium Chloride 1,000 ml @ 0 mls/hr Q0M ONCE IV ; Start 04/12/20 at 16:41; Stop 04/12/20 at 16:45; Status DC Ondansetron HCl 4 mg Q4H PRN IV NAUSEA AND VOMITING; Start 04/12/20 at 17:00; Stop 05/12/20 at 16:59; Status UNV Sodium Chloride 1,000 ml @ 125 mls/hr Q8H IV ; Start 04/12/20 at 17:00; Stop 05/12/20 at 16:59; Status UNV Morphine Sulfate 4 mg Q4H PRN IV SEVERE PAIN (7-10); Start 04/12/20 at 17:00; Stop 04/19/20 at 16:59; Status UNV DAVID MOFFETT DO Apr 12, 2020 16:55
[2020-04-12] MEDS ORDERED: MORPHINE SULFATE 2 MG/ML SYR 1ML IV PRN (17:00)
[2020-04-12] MEDS ORDERED: MORPHINE SULFATE INJ 4 MG/ML INJ 1ML IV PRN (17:00)
[2020-04-12] MEDS ORDERED: ONDANSETRON HCL INJ 2MG/ML 2ML 2 MG/ML VIAL IV PRN (17:00)
[2020-04-12 17:35] LABS: BASOPHILS % 0.4 % (0.0-1.0); EOSINOPHILS % 0.1 % (0.0-6.0); HEMATOCRIT 42.1 % (38.2-49.6); HEMOGLOBIN 13.8 g/dL (14.0-18.0); LYMPHOCYTES # (AUTO) 0.2 (1.0-3.2); LYMPHOCYTES % 2.6 % (18.0-39.1); MEAN CORPUSCULAR HEMOGLOBIN 30.7 pg (28-32); MEAN CORPUSCULAR HGB CONC 32.8 g/dL (31-35); MEAN CORPUSCULAR VOLUME 93.8 fL (81-99); MONOCYTES # (AUTO) 0.2 (0.2-0.8); MONOCYTES % 2.8 % (4.4-11.3); NEUTROPHILS % 93.6 % (38.7-80.0); PLATELET COUNT 233 x10e3/uL (140-360); RED BLOOD COUNT 4.49 x10e6/uL (4.3-5.7); RED CELL DISTRIBUTION WIDTH 16.2 % (11.7-14.4)
[2020-04-12] MEDS: PIPER-TAZ 3.375 GM 50 ML IV SCH (17:35)
--- OUTSIDE RECORDS SUMMARY | 2020-04-12 17:38 | XMS REPORT | Clinical Summary ---
Author Author [facility] Address Unknown Phone Unavailable Care Team Providers Care Metal Technician Name Role Phone Mikayla Bauer MD PCP Allergies No Known Active Allergies Medications End Date Status Medication Sig Dispensed Refills Start Date Active traMADol-acetaminophen TK 1 T PO Q 6 0 01 (ULTRACET) 37.5-325 mg H PRN P 7 per tablet Active simvastatin (ZOCOR) 40 MG TK 1 T PO QD 2 02/23 tablet IN THE SALVADOR 7 Active metoprolol succinate XL TK 1 T PO BID 1 (TOPROL-XL) 50 mg 24 hr 7 tablet Active NIFEdipine XL (PROCARDIA TK 1 T PO QD 1 04/07 XL) 30 MG 24 hr tablet 7 Active allopurinol (ZYLOPRIM) TK 1 T PO 3 01 100 MG tablet ONCE A DAY 7 Active DIGOX 125 mcg tablet TK 1 T PO QD 1 7 Active doxazosin (CARDURA) 2 MG TK 1 T PO QHS 2 03/19 tablet 7 Active finasteride (PROSCAR) 5 TK 1 T PO QD 3 mg tablet 7 Active clopidogrel (PLAVIX) 75 TK 1 T PO 2 mg tablet ONCE A DAY 7 Active omeprazole (PriLOSEC) 40 0 MG capsule 8 Active isosorbide mononitrate 0 (ISMO,MONOKET) 20 MG 8 tablet Active ALPRAZolam (XANAX) 0.5 MG 0 tablet 8 Active fluticasone (FLONASE) 50 2 sprays (100 15.8 mL 3 mcg/actuation nasal mcg total) by 8 sprayIndications: Each Nare Sensorineural hearing route daily. loss (SNHL) of both ears, Tinnitus of both ears, Dysfunction of both eustachian tubes Active Problems Problem Noted Date Sensorineural hearing loss (SNHL) of both ears 03/21 Dysfunction of both eustachian tubes 03/21/2018 Tinnitus of both ears 03/21/2018 Surgical History Surgery Date Site/Laterality Comments CARDIAC SURGERY Medical History Medical History Date Comments Heart palpitations Social History Date Tobacco Use Types Packs/Day Years Used Former Smoker Drinks/Week oz/Week Comments Alcohol Use No Sex Assigned at Date Recorded Not on file Last Filed Vital Signs Not on file Plan of Treatment Health Maintenance Due Date Last Done Comments SHINGLES VACCINES (#1) 1991 65+ PNEUMOCOCCAL VACCINE 2006 (1 of 1 - PPSV23) INFLUENZA VACCINE 01/23/2020 Results Not on fileafter 04/12/2019 Insurance Type Payer Benefit Subscriber ID Effective Phone Address Plan / Dates Group HMO [employer] TEX[employer] [id number] LEONOR ramos Advance Directives For more information, please contact: [phone] 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
[2020-04-12 17:39] LABS: BILIRUBIN,URINE LARGE (NEGATIVE); CLARITY,URINE SL CLOUDY (CLEAR); COLOR,URINE ORANGE (YELLOW); KETONES,URINE TRACE (NEGATIVE); LEUKOCYTE ESTERASE ,URINE NEGATIVE (NEGATIVE); NITRITE,URINE NEGATIVE (NEGATIVE); PROTEIN,URINE DIPSTICK 1+ (NEGATIVE); URINE UROBILINOGEN 8 mg/dL (0.2 - 1)
--- OUTSIDE RECORDS SUMMARY | 2020-04-12 17:39 | XMS REPORT | Continuity of Care Document ---
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 Name Role Phone RYAN LINDSEY MD PCP NELSON MOFFETT Attgagan Unavailable NELSON MOFFETT Admgagan Unavailable Payers Payer Name Policy Type Policy Number Effective Date Expiration Date Phuong Sanders [id number] 2015 00:00:00 [facility] Problems Condition Name Condition Details Condition Category Status Onset Date Resolution Date Last Treatment Date Treating Clinician Comments Source Sensorineural hearing loss (SNHL) of both ears Sensori neural hearing loss (SNHL) of both ears Disease Active 2018-03-21 00:00:00 Kyaw Capps Dysfunction of both eustachian tubes Dysfunction of both eus tachian tubes Disease Active 2018-03-21 00:00:00 Anderson Jefry Tinnitus of both ears Tinnitus of both ears Disease Active 201 01-31-28 00:00:00 Kyaw Thomas t Acute renal failure Acute renal failure Problem Active 2015-01-13 00:00 :00 [facility] Obstructive uropathy Obstructive uropathy Problem Active 00:00:00 [facility] Calculus of ureter Ureterolithiasis Problem Active 2015-01-13 00:00:00 [facility] Chest pain Chest pain Problem Active C [facility] Allergies, Adverse Reactions, Alerts This patient has no known allergies or adverse reactions. Social History Social Habit Start Date Stop Date Quantity Comments Source Sex Assigned At Tiana Capps Alcohol intake 2018-03-21 00:00:00 2018-03-21 00:00:00 Current non-drinker of alcohol (finding) Kyaw Capps Smoking Status Start Date Stop Date Source Former smoker 2018-03-21 00:00:00 2018-03-21 00:00:00 Kyaw Capps Medications Ordered Medication Name Filled Medication Name Start Date Stop Da te Current Medication? Ordering Clinician Indication Dosage Frequency Signature (SIG) Comments Components Source fluticasone (FLONASE) 50 mcg/actuation nasal spray 2018-02 00:00:00 Yes Dysfunction of both eustachian tubes 100ug QD 2 sprays (100 mcg total) by Each Nare route daily. Kyaw Capps isosorbide mononitrate (ISMO,MONOKET) 20 MG tablet 2018-02 00:00:00 Yes Kyaw faustin omeprazole (PriLOSEC) 40 MG capsule 2018-02-25 00:00:00 Yes Kyaw Capps ALPRAZolam (XANAX) 0.5 MG tablet 2018-01-26 00:00:00 Yes Kyaw Capps NIFEdipine XL (PROCARDIA XL) 30 MG 24 hr tablet 2017-04-07 00:00 :00 Yes TK 1 T PO QD Kyaw estrella allopurinol (ZYLOPRIM) 100 MG tablet 2017-04-05 00:00:00 Ye s TK 1 T PO ONCE A DAY Kyaw Capps finasteride (PROSCAR) 5 mg tablet 2017-04-02 00:00:00 Yes TK 1 T PO QD Kyaw Capps clopidogrel (PLAVIX) 75 mg tablet 2017-04-02 00:00:00 Yes TK 1 T PO ONCE A DAY Kyaw Capps simvastatin (ZOCOR) 40 MG tablet 2017-03-19 00:00:00 Yes TK 1 T PO QD IN THE SALVADOR Kyaw Capps doxazosin (CARDURA) 2 MG tablet 2017-03-19 00:00:00 Yes TK 1 T PO QHS Kyaw Capps metoprolol succinate XL (TOPROL-XL) 50 mg 24 hr tablet 2017-02-12 00:00:00 Yes TK 1 T PO BID Kyaw faustin traMADol-acetaminophen (ULTRACET) 37.5-325 mg per tablet 2017-02-04 00:00:00 Yes TK 1 T PO Q 6 H PRN P Kyaw Capps DIGOX 125 mcg tablet 2017-01-28 00:00:00 Yes TK 1 T PO QD Kyaw Capps Levofloxacin (Levaquin) 500 Mg Tablet, 500 Mg Oral Lev ofloxacin (Levaquin) 500 Mg Tablet, 500 Mg Oral 2015-01-15 00:00:00 2015-06-28 00:00:00 Oralia Mosher Md 500 Daily [facility] Allopurinol 100 Mg Tablet Allopurinol 100 Mg Tablet Yes 100 Daily [facility] Alprazolam (Xanax) 0.5 Mg Tablet Alprazolam (Xanax) 0.5 Mg Tablet Yes .5 As Needed [facility] Clopidogrel Bisulfate (Plavix) 75 Mg Tablet Clopidogre l Bisulfate (Plavix) 75 Mg Tablet Yes 75 Daily [facility] Digoxin 125 Mcg Tablet Digoxin 125 Mcg Tablet Yes 125 Daily [facility] Doxazosin Mesylate 2 Mg Tablet Doxazosin Mesylate 2 Mg Tablet Yes 2 Daily [facility] Finasteride 5 Mg Tablet Finasteride 5 Mg Tablet Yes 5 Daily [facility] Glipizide 5 Mg Tablet Glipizide 5 Mg Tablet Yes 5 Daily as needed for High Blood Sugar [facility] Isosorbide Mononitrate 20 Mg Tablet Isosorbide Mononitrate 20 Mg Tabl et Yes 20 Daily [facility] Metoprolol Succinate 50 Mg Tab.er.24h Metoprolol Succinate 50 Mg Ta b.er.24h Yes 50 Twice A Day [facility] Nifedipine (Nifedical Xl) 30 Mg Tab.er.24 Nifedipine ( Nifedical Xl) 30 Mg Tab.er.24 Yes 30 Daily [facility] Omeprazole 20 Mg Capsule. Omeprazole 20 Mg Capsule. Yes 20 Daily [facility] Simvastatin 40 Mg Tablet Simvastatin 40 Mg Tablet Yes 40 Daily [facility] Lisinopril/Hydrochlorothiazide (Lisinopr il-Hctz 20-25 Mg Tab) 1 Each Tablet, 20- 25 Mg Oral Lisinopril/Hydrochlorothiazide (Lisinopr il-Hctz 20-25 Mg Tab) 1 Each Tablet, 20-25 Mg Oral 2014-10-18 00:00:00 No Da lashell [facility] Monopril , 50 Mg Oral Monopril , 50 Mg Oral 2014-10-18 00:00:00 No 50 Daily [facility] Procedures Procedure Date / Time Performed Performing Clinician [facility] CT angiography of chest 2019-07-27 00:00:00 [facility] Computed tomography angiography of abdomen and pelvis without then withcontrast 2019-07-27 00:00:00 [facility] Magnetic resonance imaging of lumbar spine without contrast 2019-07-27 00:00:00 JOLENE STOKES [facility] Plan of Care Planned Activity Planned Date Details Comments Source Future Scheduled Test 2020-01-23 00:00:00 INFLUENZA VACCINE [code = INFLUENZA VACCINE] [facility] Future Scheduled Test 2006 00:00:00 65+ PNEUMOCOCCAL V ACCINE (1 of 1 - PPSV23) [code = 65+ PNEUMOCOCCAL VACCINE (1 of 1 - PPSV23)] [facility] Future Scheduled Test 1991 00:00:00 SHINGLES VACCINES (#1) [code = SHINGLES VACCINES (#1)] [facility] Encounters Start Date/Time End Date/Time Encounter Type [facility] Encounter ID Source 2019-07-27 04:58:00 2019-07-28 11:14:00 Discharged Inpatient (obs) 1 NELSON MOFFETT [facility] [id number] [facility] Results Test Description Test Time Test Comments Results Result Comments Source MRI SPINE LUMBAR WO 2019-07-28 08:31:00 [facility] [address] [address] Patient Name: BAILEY MUNIZ MR #: [id number] : 1940 Age/Sex: 79/M Req #: [id number] Adm Physician: NELSON MOFFETT MD Ordered by: JOLENE STOKES MD Report #: [id number] Location: MED/SURG2 Room/Bed: [facility] Procedure: [id number] MRI/MRI SPINE LUMBAR WO Exam Date: Exam Time: REPORT STATUS: Signed MRI SPINE LUMBAR WO HISTORY: Lumbar back pain COMPARISON: CTA of the abdomen/pelvis 07/27/2019 TECHNIQUE: Sagittal T1, sagittal T2, sagittal STIR, axial T2, coronal T2, and axial proton density weighted images of the lumbar spine were obtained without contrast. DISCUSSION: Number of non-rib bearing lumbar vertebral bodies: 5. Alignment: Normal lordosis. Mild lumbar levoscoliosis is centered at L3-L4. Vertebrae: No definite evidence for acute fracture or neoplasm. Mild compression deformity of the T11 vertebral body is not associated with significant marrow edema or retropulsion; this is likely chronic. A few scattered small nodular T1 hyperintense vertebral body lesions are benign hemangiomas. Conus medullaris: Normal, ends at L2. Cauda equina: No masses or arachnoiditis. Posterior paraspinal muscles: Well preserved. Posterior incision signal changes. Soft tissues: Approximately 1.7 cm hypointense nodular cutaneous/subcutaneous lesion in the right paramedian back at L4-L5 may be an inclusion cyst. The left kidney is absent. A few small T2 hyperintense lesions in the right kidney are likely cysts. Mild to moderate multilevel disc degeneration is most prominent at L5-S1. There are nonspecific minimal inflammatory endplate changes on the right at L3-L4 and at T10-T11. T10-T11: Minimal disc bulge without significant canal stenosis. The neural foramina are incompletely imaged. T11-T12: Mild canal stenosis due to disc bulge. No significant foraminal stenosis. T12-L1: Patent canal and foramina. L1-L2: Mild canal stenosis due to disc bulge and ligamentum flavum thickening. No significant foraminal stenosis. L2-L3: Mild canal stenosis due to disc bulge and ligamentum flavum thickening. Both lateral recesses are slightly effaced. Moderate right and mild left foraminal stenoses due to disc bulge and facet arthrosis. L3-L4: Moderate canal stenosis due to disc bulge and ligamentum flavum thickening. Both lateral recesses are effaced. Severe right and mild to moderate left foraminal stenoses due to disc bulge and facet arthrosis. The exiting right L3 nerve root is likely impinged. L4-L5: Laminectomy level without significant central canal stenosis. Moderate to severe right and mild to moderate left foraminal stenoses due to disc bulge and facet arthrosis. The exiting right L4 nerve root is likely impinged. L5-S1: Mild canal stenosis due to disc bulge and superimposed right central disc protrusion. The right lateral recess is effaced and the descending right S1 nerve root is impinged. Mild to moderate right and moderate left foraminal stenoses due to disc bulge and facet arthrosis. IMPRESSION: 1. Mild to moderate multilevel disc degeneration, most prominent at L5-S1, with mild lumbar levoscoliosis. Nonspecific minimal inflammatory endplate changes at L3-L4 and T10-T11. 2. Laminectomy changes at L4-L5. 3. Multilevel degenerative canal stenoses - moderate at L3-L4. 4. Small right L5-S1 central disc protrusion impinges upon the descending right S1 nerve root. 5. Multilevel degenerative foraminal stenoses - moderate on the right at L2-L3: severe on the right at L3-L4; moderate to severe on the right at L4-L5; moderate on the left at L5-S1. Signed by: Dr. Oliver Mendoza M.D. on 07/28/2019 8:48 AM Dictated By: OLIVER MENDOZA MD 7 Transcribed By: ARLINE on 07/28/19847 COPY TO: JOLENE STOKES MD Triglycerides Level 2019-07-28 05:58:00 Test Item Triglycerides Level (test code = 2571-8) 96 0-149 [facility] [id number] 05:58:00* Test Item Value Reference Range Interpretation Comments Cholesterol Level (test code = 2093-3) 102 0-199 Less than 200 mg/dL Low Uhfl539 - 239 mg/dL Borderline Jxru063 m g/dl and greater High Risk [facility] Tvvdyixxiji7182-70-66 05:58:00* Test Item Value Reference Range Interpretation Comments LDL Cholesterol (test code = 2089-1) 58 60-130 L [facility] Amvvxprljim8648-19-55 05:58:00* Test Item Value Reference Range Interpretation Comments HDL Cholesterol (test code = 2085-9) 25 40-60 L [facility]/HDL Dpjlm8839-32-70 05:58:00 * Test Item Value Reference Range Interpretation Comments Cholesterol/HDL Ratio (test code = 9830-1) 4.1 3.9-4.7 [facility] [id number] 19:34:00* Test Item Value Reference Range Interpretation Comments Creatine Kinase (test code = 2157-6) 50 30-200 [facility] Kinase [id number] 19:34:00* Test Item Value Reference Range Interpretation Comments Creatine Kinase MB (test code = 83740-3) 0.40 0-5.0 [facility] Atlanta[facility]roponin [id number] 19:34:00* Test Item Value Reference Range Interpretation Comments Troponin I (test code = LCG4212) < 0.001 0-0.300 [facility] [id number] 04:41:00* Test Item Value Reference Range Interpretation Comments Urine Color (test code = 5778-6) YELLOW YELLOW [facility] Zawqfao9041-27-22 04:41:00* Test Item Value Reference Range Interpretation Comments Urine Clarity (test code = 09403-4) CLEAR CLEAR [facility] Atlanta[facility] Specific Jitfuih3210-30-26 04:41:00 * Test Item Value Reference Range Interpretation Comments Urine Specific [place] (test code = 5811-5) 1.020 1.010-1.02 5 [facility] [id number] 04:41:00* Test Item Value Reference Range Interpretation Comments Urine pH (test code = 21272-6) 6 5-7 [facility] Leukocyte Rvcdgssw4815-60-13 04:41:00* Test Item Value Reference Range Interpretation Comments Urine Leukocyte Esterase (test code = 5799-2) NEGATIVE NEGATIVE [facility] Tjqidgy7349-46-11 04:41:00* Test Item Value Reference Range Interpretation Comments Urine Nitrite (test code = 38036-8) NEGATIVE NEGATIVE [facility] Yhglelm9790-41-46 04:41:00* Test Item Value Reference Range Interpretation Comments Urine Protein (test code = 5804-0) NEGATIVE NEGATIVE [facility] Glucose (UA)2019-07-27 04:41:00* Test Item Value Reference Range Interpretation Comments Urine Glucose (UA) (test code = 2349-9) NEGATIVE NEGATIVE [facility] Crcuosi1146-18-35 04:41:00* Test Item Value Reference Range Interpretation Comments Urine Ketones (test code = 31162-1) NEGATIVE NEGATIVE [facility] Ecxematvvnfm1873-08-64 04:41:00* Test Item Value Reference Range Interpretation Comments Urine Urobilinogen (test code = 60274-9) 4 0.2-1 [facility] Bcobrkgxi8018-48-27 04:41:00* Test Item Value Reference Range Interpretation Comments Urine Bilirubin (test code = 1978-6) NEGATIVE NEGATIVE [facility] Qgduk4540-57-02 04:41:00* Test Item Value Reference Range Interpretation Comments Urine Blood (test code = 79103-8) NEGATIVE NEGATIVE [facility] [id number] 04:41:00* Test Item Value Reference Range Interpretation Comments Urine WBC (test code = 5821-4) 0-5 0-5 [facility] [id number] 04:41:00* Test Item Value Reference Range Interpretation Comments Urine RBC (test code = 55786-3) NONE 0-5 [facility] Iipqfrnr5642-50-60 04:41:00* Test Item Value Reference Range Interpretation Comments Urine Bacteria (test code = 11268-4) FEW NONE [facility] Epithelial Nlzyq9110-50-66 04:41:00 * Test Item Value Reference Range Interpretation Comments Urine Epithelial Cells (test code = 82317-7) MODERATE NONE [facility]WOX[facility]36-58-01 04:37:00 [facility] [address], [place] [address] Patient Name: BAILEY MUNIZ MR #: [id number] : 1940 Age/Sex: 79/M Req #: [id number] Adm Physician: NELSON MOFFETT MD Ordered by: SABIHA TANG DO Report #: [id number] Location: MED/SURG2 Room/Bed: [facility] Procedure: [id number] CT/CTA ABD/PELVIS Exam Date: 07/27/19 Exam Time: 032 9 REPORT STATUS: Signed Chest, A bdomen and Pelvis CTA WITH AND WITHOUT IV CONTRAST. INDICATION: Chest yamini n COMPARISON: Chest radiograph of the same day. TECHNIQUE: The chest, abdomen and pelvis were scanned utilizing a multidetector helical scanner from the thoracic inlet to the pubic symphysis before and after administration of IV contrast. Coronal and sagittal reformations were obtained. 3D post-processi ng of the images was performed, and the post-processed images were used in int erpretation. CTA dissection protocol was performed. IV CONTRAST: 100m L of Isovue 370 ORAL CONTRAST: Water RADIATION DOSE: Total DLP: 1864.8 mGy*cm FINDINGS: I agree with the findings provided in the preliminary r eport. There are no additional significant findings to report. IMPRESSION : No aortic dissection or aneurysm. No central PE. Lingular 4mm pulm onary nodule. If the patient is high risk, followup chest CT is optional at 12 months. If the patient is low risk, no further follow-up imaging is necessary. PRELIMINARY REPORT: 1. No evidence of mural hematoma, displaced intimal calcification, or retroperitoneal hemorrhage. 2. No evidence of aor tic dissection or aneurysmal dilatation. No occluded arterial vessels in the c hest, abdomen, or pelvis. 3. 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 The h eart is enlarged with subendothelial calcifications of the left ventricle, the result of remote infarct. Mild burden of atherosclerotic plaque throughout the arterial system. 4. No filling defects in the pulmonary arteries. 5. Dif fuse pulmonary hyperinflation suggestive of small airways disease. Subsegmenta l atelectasis in the right lower lobe. Noncalcified nodule in the lingula shakir uring 4 mm. 6. Single right kidney. No calculus. Lower pole cyst measures 9 m m. There is excreted contrast in the collecting system without filling defect. The ureter is normal in diameter throughout its course. 7. No evidence for bowel obstruction or inflammation. No CT evidence of mesenteric ischemia. 8. Prostate hypertrophy and bladder wall thickening suggestive of outlet obstr uction. 9. Nonspecific paracaval lymph nodes measure up to 10 mm. 10. Low attenuating lesion in the proximal pancreas tail measures 3 to 4 mm, either a cyst or IPMN. No pancreas duct dilatation. 11. Sebaceous cyst in the posterio r pelvis is partially calcified and measures 17 mm. 12. A full report will be dictated later in the A.M. Signed by: Neto Johns MD on 07/27/2019 12:19 P M Dictated By: NETO JOHNS MD 1219 Transcribed By: ARLINE on 07/27/19 1219 COPY TO: SABIHA TANG DO CTA [id number] 04:37:[address] [address] Patient Name: BAILEY MUNIZ MR #: [id number] : 1940 Age/Sex: 79/M Req #: [id number] Adm Physician: NELSON MOFFETT MD Ordered by: SABIHA TANG DO Report #: [id number] Location: MED/SURG2 Room/Bed: 211-1 Procedure: [id number] CT/CTA CHEST Exam Date: 07/27/19 Exam Time: 0329 REPORT STATUS: Signed Chest, Abdomen and Pelvis CTA WITH AND WITHOUT IV CONTRAST. INDICATION: Chest pain COMPARISON: Chest radiograph of the same day. TECHNIQUE: The chest, abdomen and pelvis were scanned utilizing a multidetector helical scanner from the thoracic inlet to the pubic symphysis before and after administration of IV co ntrast. Coronal and sagittal reformations were obtained. 3D post-processing of the images was performed, and the post-processed images were used in interpre tation. CTA dissection protocol was performed. IV CONTRAST: 100mL of Isovue 370 ORAL CONTRAST: Water RADIATION DOSE: Total DLP: 1864.8 mGy* cm FINDINGS: I agree with the findings provided in the preliminary report . There are no additional significant findings to report. IMPRESSION: N o aortic dissection or aneurysm. No central PE. Lingular 4mm pulmonary nodule. If the patient is high risk, followup chest CT is optional at 12 holly hs. If the patient is low risk, no further follow-up imaging is necessary. PRELIMINARY REPORT: 1. No evidence of mural hematoma, displaced intim al calcification, or retroperitoneal hemorrhage. 2. No evidence of aortic d issection or aneurysmal dilatation. No occluded arterial vessels in the chest, abdomen, or pelvis. 3. 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 The heart is enlarged with subendothelial calcifications of the left ventricle, the resu lt of remote infarct. Mild burden of atherosclerotic plaque throughout the art erial system. 4. No filling defects in the pulmonary arteries. 5. Diffuse pulmonary hyperinflation suggestive of small airways disease. Subsegmental ate lectasis in the right lower lobe. Noncalcified nodule in the lingula measuring 4 mm. 6. Single right kidney. No calculus. Lower pole cyst measures 9 mm. Th ere is excreted contrast in the collecting system without filling defect. The ureter is normal in diameter throughout its course. 7. No evidence for haleigh l obstruction or inflammation. No CT evidence of mesenteric ischemia. 8. Pr ostate hypertrophy and bladder wall thickening suggestive of outlet obstructio n. 9. Nonspecific paracaval lymph nodes measure up to 10 mm. 10. Low atten uating lesion in the proximal pancreas tail measures 3 to 4 mm, either a cyst or IPMN. No pancreas duct dilatation. 11. Sebaceous cyst in the posterior pel vis is partially calcified and measures 17 mm. 12. A full report will be di ctated later in the A.M. Signed by: Neto Johns MD on 07/27/2019 12:19 PM Dictated By: NETO JOHNS MD 18 COPY TO: BRIAN TANG DO Ethyl Alcohol [id number] 03:29:00* Test Item Value Reference Range Interpretation Comments Ethyl Alcohol Level (test code = 5643-2) < 10.0 0.0-10.0 [facility] Natri[facility]tic Mtcnrwh3455-31-68 03:11:00* Test Item Value Reference Range Interpretation Comments B-Type Natriuretic Peptide (test code = 37483-6) 185.1 0-100 H [facility] AtlantaProthrombin [id number] 03:00:00* Test Item Value Reference Range Interpretation Comments Prothrombin Time (test code = 5902-2) 13.1 11.9-14.5 [facility] Atlanta[facility]thromb Time International Ratio 2019-07-27 03:00:00* Test Item Value Reference Range Interpretation Comments Prothromb Time International Ratio (test code = 6301-6) 0.97 Oral Anticoagulant Therapy INR Values:1. Low Intensity Therapy 1.5 - 2.02 . Moderate Intensity Therapy 2.0 - 3.03. High Intensity Therapy(1) 2.5 - 3. 54. High Intensity Therapy(2) 3.0 - 4.05. Panic Value INR > 5.0 [facility] Atlanta[facility] Partial Thromboplast Time 2019-07-27 03:00:00* Test Item Value Reference Range Interpretation Comments Activated Partial Thromboplast Time (test code = 95903-0) 33.5 23.8-35.5 [facility] Odrwm5212-01-53 03:00:00* Test Item Value Reference Range Interpretation Comments Sodium Level (test code = 2951-2) 143 136-145 [facility] Atlanta[facility]assium [id number] 03:00:00* Test Item Value Reference Range Interpretation Comments Potassium Level (test code = 2823-3) 4.2 3.5-5.1 [facility] Atlanta[facility]loride [id number] 03:00:00* Test Item Value Reference Range Interpretation Comments Chloride Level (test code = 2075-0) 107 98-107 [facility] AtlantaCarbon Dioxide [id number] 03:00:00* Test Item Value Reference Range Interpretation Comments Carbon Dioxide Level (test code = 2028-9) 23 22-29 [facility] AtlantaAnion [id number] 03:00:00* Test Item Value Reference Range Interpretation Comments Anion Gap (test code = 56070-4) 17.2 8-16 H [facility] AtlantaBlood Urea [id number] 03:00:00* Test Item Value Reference Range Interpretation Comments Blood Urea Nitrogen (test code = 3094-0) 16 7-26 [facility] AtlantaCreatinine2020-02-03 03:00:00* Test Item Value Reference Range Interpretation Comments Creatinine (test code = 2160-0) 1.06 0.72-1.25 [facility] Atlanta[facility]UN/Creatinine Afuhq9166-14-02 03:00:00* Test Item Value Reference Range Interpretation Comments BUN/Creatinine Ratio (test code = 3097-3) 15 6-25 [facility] Atlanta[facility]at Glomerular Filtration Rate 2019-07-27 03:00:00* Test Item Value Reference Range Interpretation Comments Estimat Glomerular Filtration Rate (test code = 258609997) > 60 >60 Ranges were taken from the National Kidney Disease Education Program and the [facility] literature.Reference ranges:60 or greater: Ltafpo79-83 ( for 3 consecutive months): Chronic kidney disease 15 or less: Kidney failureCHRISTUS Saint [facility] – AtlantaGlucose Zipbz3138-22-87 03:00:00* Test Item Value Reference Range Interpretation Comments Glucose Level (test code = MSP1097) 129 74-118 H [facility] AtlantaCalcium [id number] 03:00:00* Test Item Value Reference Range Interpretation Comments Calcium Level (test code = 70382-3) 9.2 8.4-10.2 [facility] Gtlmtsgtf0820-42-61 03:00:00* Test Item Value Reference Range Interpretation Comments Total Bilirubin (test code = 1975-2) 2.2 0.2-1.2 H [facility] AtlantaAspartate Amino Transf (AST/SGOT) 2019-07-27 03:00:00* Test Item Value Reference Range Interpretation Comments Aspartate Amino Transf (AST/SGOT) (test code = Aspartate Amino Transf (AST/SGOT)) 23 5-34 [facility] Atlanta[facility]anine Aminotransferase (ALT/SGPT) 2019-07-27 03:00:00* Test Item Value Reference Range Interpretation Comments Alanine Aminotransferase (ALT/SGPT) (test code = 1742-6) 13 0-55 [facility]19 03:00:00* Test Item Value Reference Range Interpretation Comments Total Protein (test code = 2885-2) 6.9 6.5-8.1 [facility] AtlantaAlbumin2020-02-03 03:00:00* Test Item Value Reference Range Interpretation Comments Albumin (test code = 1751-7) 3.8 3.5-5.0 [facility] AtlantaGlobulin2020-02-03 03:00:00* Test Item Value Reference Range Interpretation Comments Globulin (test code = 49868-2) 3.1 2.3-3.5 [facility] AtlantaAlbumin/Globulin Laabq4800-67-24 03:00:00 * Test Item Value Reference Range Interpretation Comments Albumin/Globulin Ratio (test code = 1759-0) 1.2 0.8-2.0 [facility] AtlantaAlkaline Ygvtakjxxmh3256-78-24 03:00:00* Test Item Value Reference Range Interpretation Comments Alkaline Phosphatase (test code = 6768-6) 99 40-150 [facility] AtlantaWhite Blood Lcxoz9276-08-35 02:59:00* Test Item Value Reference Range Interpretation Comments White Blood Count (test code = 6690-2) 6.87 4.8-10.8 [facility] Atlanta[facility] Blood Arngo1074-68-16 02:59:00* Test Item Value Reference Range Interpretation Comments Red Blood Count (test code = 789-8) 5.37 4.3-5.7 [facility] AtlantaHemoglobin2020-02-03 02:59:00* Test Item Value Reference Range Interpretation Comments Hemoglobin (test code = 27965-9) 16.4 14.0-18.0 [facility] AtlantaHematocrit2020-02-03 02:59:00* Test Item Value Reference Range Interpretation Comments Hematocrit (test code = 4544-3) 48.4 38.2-49.6 [facility] AtlantaMean Corpuscular Cuurts7045-80-38 02:59:00* Test Item Value Reference Range Interpretation Comments Mean Corpuscular Volume (test code = 787-2) 90.1 81-99 [facility]Mean Corpuscular Sneaehxwwj3431-43-21 02:59:00* Test Item Value Reference Range Interpretation Comments Mean Corpuscular Hemoglobin (test code = 785-6) 30.5 28-32 [facility]Mean Corpuscular Hemoglobin Concent 2019-07-27 02:59:00* Test Item Value Reference Range Interpretation Comments Mean Corpuscular Hemoglobin Concent (test code = 786-4) 33.9 31-35 [facility] AtlantaRed Cell Distribution Tnzvc3146-02-27 02:59:00* Test Item Value Reference Range Interpretation Comments Red Cell Distribution Width (test code = 64627-2) 14.0 11.7 -14.4 [facility] AtlantaPlatelet Wyvek4275-04-03 02:59:00* Test Item Value Reference Range Interpretation Comments Platelet Count (test code = 777-3) 124 140-360 L [facility] AtlantaNeutrophils (%) (Auto)2019-07-27 02:59:00 * Test Item Value Reference Range Interpretation Comments Neutrophils (%) (Auto) (test code = 81979-2) 47.2 38.7-80.0 [facility] AtlantaLymphocytes (%) (Auto)2019-07-27 02:59:00 * Test Item Value Reference Range Interpretation Comments Lymphocytes (%) (Auto) (test code = 736-9) 36.1 18.0-39.1 [facility] AtlantaMonocytes (%) (Auto)2019-07-27 02:59:00* Test Item Value Reference Range Interpretation Comments Monocytes (%) (Auto) (test code = 5905-5) 10.8 4.4-11.3 [facility] AtlantaEosinophils (%) (Auto)2019-07-27 02:59:00 * Test Item Value Reference Range Interpretation Comments Eosinophils (%) (Auto) (test code = 713-8) 4.9 0.0-6.0 [facility]ophils (%) (Auto)2019-07-27 02:59:00* Test Item Value Reference Range Interpretation Comments Basophils (%) (Auto) (test code = 706-2) 0.7 0.0-1.0 [facility] AtlantaIM GRANULOCYTES %2019-07-27 02:59:00* Test Item Value Reference Range Interpretation Comments IM GRANULOCYTES % (test code = IM GRANULOCYTES %) 0.3 0.0- 1.0 [facility] AtlantaNeutrophils # (Auto)2019-07-27 02:59:00* Test Item Value Reference Range Interpretation Comments Neutrophils # (Auto) (test code = 751-8) 3.2 2.1-6.9 [facility] AtlantaLymphocytes # (Auto)2019-07-27 02:59:00* Test Item Value Reference Range Interpretation Comments Lymphocytes # (Auto) (test code = 11538-5) 2.5 1.0-3.2 [facility] AtlantaMonocytes # (Auto)2019-07-27 02:59:00* Test Item Value Reference Range Interpretation Comments Monocytes # (Auto) (test code = 742-7) 0.7 0.2-0.8 [facility] AtlantaEosinophils # (Auto)2019-07-27 02:59:00* Test Item Value Reference Range Interpretation Comments Eosinophils # (Auto) (test code = 711-2) 0.3 0.0-0.4 [facility] AtlantaBasophils # (Auto)2019-07-27 02:59:00* Test Item Value Reference Range Interpretation Comments Basophils # (Auto) (test code = 704-7) 0.1 0.0-0.1 [facility] AtlantaAbsolute Immature Granulocyte (auto 2019-07-27 02:59:00* Test Item Value Reference Range Interpretation Comments Absolute Immature Granulocyte (auto (josr t code = Absolute Immature Granulocyte (auto) 0.02 0-0.1 [facility] AtlantaCHEST SINGLE (PORTABLE)2019-07-27 02:58:00 [place] [address] Patient Name: BAILEY MUNIZ MR #: [id number] : 1940 Age/Sex: 79/M Req #: [id number] Adm Physician: Ordered by: SABIHA TANG DO Report #: [id number] Location: ER Room/Bed: Procedure: [id number] DX/CHEST SINGLE (PORTABLE) Exam Date: 07/27/19 Exam Time: 0240 REPORT STATUS: Signed EXAMINATION: CHEST SINGLE (PORTABLE) COMPARISON: None INDICATION: Chest pain, epigastric pain CHEST PAIN [id number] 0240 Y DIS CUSSION: Frontal view of the chest obtained at 0242 hours. HEART AND MEDI ASTINUM: The heart is top normal in size. LINES: None. LUNGS: Pat cory right basilar airspace opacity. Left lung is clear. No interstitial edema. PLEURA: No pleural effusion or pneumothorax. BONES AND SOFT TISSUES: Median sternotomy wires are intact. The soft tissues are normal. IMP RESSION: Right basilar airspace opacity may represent atelectasis or pneumoni a. Postoperative changes of the mediastinum. Signed by: Dr. Mandy mims MD on 07/27/2019 3:03 AM Dictated By: MANDY SPEAR MD [facility] lisa Signed By: MANDY SPEAR MD on 07/27/19302 Transcribed By: ARLINE on 07/27/19302 COPY TO: SABIHA TANG DO Bedside Glucose 2019-07-27 02:38:00* Test Item Value Reference Range Interpretation Comments Bedside Glucose (test code = 31253-5) 142 70-120 H Meter ID: [id number] [facility]
--- OUTSIDE RECORDS SUMMARY | 2020-04-12 17:44 | XMS REPORT | Continuity of Care Document ---
Author Author [facility] t Organization [facility] Address [address] [place] [address] Phone Unavailable Care Team Providers Care Mica Paster Name Role Phone RYAN LINDSEY MD PCP NELSON MOFFETT Attgagan Unavailable NELSON MOFFETT Admgagan Unavailable Payers Payer Name Policy Type Policy Number Effective Date Expiration Date Phuong Sanders [id number] 2015 00:00:00 [facility] Problems Condition Name Condition Details Condition Category Status Onset Date Resolution Date Last Treatment Date Treating Clinician Comments Source Sensorineural hearing loss (SNHL) of both ears Sensori neural hearing loss (SNHL) of both ears Disease Active 2018-03-21 00:00:00 Kyaw Capps Dysfunction of both eustachian tubes Dysfunction of both eus tachian tubes Disease Active 2018-03-21 00:00:00 [place] Jefry Tinnitus of both ears Tinnitus of both ears Disease Active 201 01-31-28 00:00:00 Kyaw Thomas t Acute renal failure Acute renal failure Problem Active 2015-01-13 00:00 :00 [facility] Obstructive uropathy Obstructive uropathy Problem Active 00:00:00 [facility] Calculus of ureter Ureterolithiasis Problem Active 2015-01-13 00:00:00 [facility] Chest pain Chest pain Problem Active C [facility] Allergies, Adverse Reactions, Alerts This patient has [...] 2015-06-28 00:00:00 Oralia Mosher Md 500 Daily [facility] Allopurinol 100 Mg Tablet Allopurinol 100 Mg Tablet Yes 100 Daily [facility] Alprazolam (Xanax) 0.5 Mg Tablet Alprazolam (Xanax) 0.5 Mg Tablet Yes .5 As Needed [facility] Clopidogrel Bisulfate (Plavix) 75 Mg Tablet Clopidogre l Bisulfate (Plavix) 75 Mg Tablet Yes 75 Daily [facility] Digoxin 125 Mcg Tablet Digoxin 125 Mcg Tablet Yes 125 Daily [facility] Doxazosin Mesylate 2 Mg Tablet Doxazosin Mesylate 2 Mg Tablet Yes 2 Daily [facility] Finasteride 5 Mg Tablet Finasteride 5 Mg Tablet Yes 5 Daily [facility] Glipizide 5 Mg Tablet Glipizide 5 Mg Tablet Yes 5 Daily as needed for High Blood Sugar [facility] Isosorbide Mononitrate 20 Mg Tablet Isosorbide Mononitrate 20 Mg Tabl et Yes 20 Daily [facility] Metoprolol Succinate 50 Mg Tab.er.24h Metoprolol Succinate 50 Mg Ta b.er.24h Yes 50 Twice A Day [facility] Nifedipine (Nifedical Xl) 30 Mg Tab.er.24 Nifedipine ( Nifedical Xl) 30 Mg Tab.er.24 Yes 30 Daily [facility] Omeprazole 20 Mg Capsule. Omeprazole 20 Mg Capsule. Yes 20 Daily [facility] Simvastatin 40 Mg Tablet Simvastatin 40 Mg Tablet Yes 40 Daily [facility] Lisinopril/Hydrochlorothiazide (Lisinopr il-Hctz 20-25 Mg Tab) 1 Each Tablet, 20- 25 Mg Oral Lisinopril/Hydrochlorothiazide (Lisinopr il-Hctz 20-25 Mg Tab) 1 Each Tablet, 20-25 Mg Oral 2014-10-18 00:00:00 No Da lashell [facility] Monopril , 50 Mg Oral Monopril , 50 Mg Oral 2014-10-18 00:00:00 No 50 Daily [facility] Procedures Procedure Date / Time Performed Performing Clinician Formerly [facility] chan CT angiography of chest 2019-07-27 00:00:00 [facility] Computed tomography angiography of abdomen and pelvis without then withcontrast 2019-07-27 00:00:00 [facility] Magnetic resonance imaging of lumbar spine without contrast 2019-07-27 00:00:00 JOLENE STOKES [facility] Plan of Care Planned Activity Planned Date Details Comments Source Future Scheduled Test 2020-01-23 00:00:00 INFLUENZA VACCINE [code = INFLUENZA VACCINE] [facility] Future Scheduled Test 2006 00:00:00 65+ PNEUMOCOCCAL V ACCINE (1 of 1 - PPSV23) [code = 65+ PNEUMOCOCCAL VACCINE (1 of 1 - PPSV23)] [facility] Future Scheduled Test 1991 00:00:00 SHINGLES VACCINES (#1) [code = SHINGLES VACCINES (#1)] [facility] Encounters Start Date/Time End Date/Time En[facility] ID Source 2019-07-27 04:58:00 2019-07-28 11:14:00 Discharged Inpatient (obs) 1 NELSON MOFFETT [facility] [id number] [facility] Results Test Description Test Time Test Comments Results Result Comments Source MRI SPINE LUMBAR WO 2019-07-28 08:31:00 [facility] [address] [address] Patient Name: BAILEY MUNIZ MR #: [id number] : 1940 Age/Sex: 79/M Req #: [id number] Adm Physician: NELSON MOFFETT MD Ordered by: JOLENE STOKES MD Report #: [id number] Location: MED/SURG2 Room/Bed: [facility] Procedure: [id number] MRI/MRI SPINE LUMBAR WO Exam Date: Exam [...] Level (test code = 2571-8) 96 0-149 [facility] Lngta7477-22-29 05:58:00* Test Item Value Reference Range Interpretation Comments Cholesterol Level (test code = 2093-3) 102 0-199 Less than 200 mg/dL Low Rhgy026 - 239 mg/dL Borderline Jebu544 m g/dl and greater High Risk [facility] NorthwestLDL Kwylwpbuijz6259-12-28 05:58:00* Test Item Value Reference Range Interpretation Comments LDL Cholesterol (test code = 2089-1) 58 60-130 L [facility] NorthwestHDL Xtcksycymri9454-20-69 05:58:00* Test Item Value Reference Range Interpretation Comments HDL Cholesterol (test code = 2085-9) 25 40-60 L [facility]Cholesterol/HDL Codwe0839-36-16 05:58:00 * Test Item Value Reference Range Interpretation Comments Cholesterol/HDL Ratio (test code = 9830-1) 4.1 3.9-4.7 [facility] Northwest[facility]ine Zhwmwe3340-06-38 19:34:00* Test Item Value Reference Range Interpretation Comments Creatine Kinase (test code = 2157-6) 50 30-200 [facility] Kinase [id number] 19:34:00* Test Item Value Reference Range Interpretation Comments Creatine Kinase MB (test code = 82726-8) 0.40 0-5.0 [facility] NorthwestTroponin [id number] 19:34:00* Test Item Value Reference Range Interpretation Comments Troponin I (test code = ZNW5391) < 0.001 0-0.300 [facility] NorthwestUrine Dsilu1810-79-45 04:41:00* Test Item Value Reference Range Interpretation Comments Urine Color (test code = 5778-6) YELLOW YELLOW [facility] NorthwestUrine Mdoulsi6009-89-58 04:41:00* Test Item Value Reference Range Interpretation Comments Urine Clarity (test code = 19280-6) CLEAR CLEAR [facility] Northwest[facility] Specific Mvzhkrv4695-48-39 04:41:00 * Test Item Value Reference Range Interpretation Comments Urine Specific [place] (test code = 5811-5) 1.020 1.010-1.02 5 [facility] NorthwestU[facility] kS5896-75-76 04:41:00* Test Item Value Reference Range Interpretation Comments Urine pH (test code = 95363-8) 6 5-7 [facility] Leukocyte Wvsemktt9909-40-06 04:41:00* Test Item Value Reference Range Interpretation Comments Urine Leukocyte Esterase (test code = 5799-2) NEGATIVE NEGATIVE [facility] NorthwestU[facility] Amsluyv8285-37-53 04:41:00* Test Item Value Reference Range Interpretation Comments Urine Nitrite (test code = 17899-3) NEGATIVE NEGATIVE [facility] NorthwestU[facility] Xksqcns6906-84-31 04:41:00* Test Item Value Reference Range Interpretation Comments Urine Protein (test code = 5804-0) NEGATIVE NEGATIVE [facility] Glucose (UA)2019-07-27 04:41:00* Test Item Value Reference Range Interpretation Comments Urine Glucose (UA) (test code = 2349-9) NEGATIVE NEGATIVE [facility] Kgkqxdm7262-57-08 04:41:00* Test Item Value Reference Range Interpretation Comments Urine Ketones (test code = 83276-0) NEGATIVE NEGATIVE [facility] Wyctynwcjgyx9905-33-85 04:41:00* Test Item Value Reference Range Interpretation Comments Urine Urobilinogen (test code = 37811-0) 4 0.2-1 [facility] Hmfoirdfs7346-15-07 04:41:00* Test Item Value Reference Range Interpretation Comments Urine Bilirubin (test code = 1978-6) NEGATIVE NEGATIVE [facility] NorthwestUrine Ccchg1760-70-92 04:41:00* Test Item Value Reference Range Interpretation Comments Urine Blood (test code = 96498-5) NEGATIVE NEGATIVE [facility] NorthwestU[facility] SKF1437-34-66 04:41:00* Test Item Value Reference Range Interpretation Comments Urine WBC (test code = 5821-4) 0-5 0-5 [facility] Northwest[facility] YJF4814-83-35 04:41:00* Test Item Value Reference Range Interpretation Comments Urine RBC (test code = 22368-9) NONE 0-5 [facility] Northwest[facility] Stbfzfpp5675-97-49 04:41:00* Test Item Value Reference Range Interpretation Comments Urine Bacteria (test code = 51238-8) FEW NONE [facility] Epithelial Hzeyc4800-60-05 04:41:00 * Test Item Value Reference Range Interpretation Comments Urine Epithelial Cells (test code = 78744-0) MODERATE NONE [facility]/BPQVVH1784-08-39 04:37:00 [facility] [address] [place], [place] [address] Patient Name: BAILEY MUNIZ MR #: [id number] : 1940 Age/Sex: 79/M Req #: [id number] Adm Physician: NELSON MOFFETT MD Ordered by: SABIHA TANG DO Report #: [id number] Location: MED/SURG2 Room/Bed: [facility] Procedure: [id number] CT/CTA ABD/PELVIS Exam Date: 07/27/19 Exam Time: [...] 1219 COPY TO: SABIHA TANG DO CTA FWREY2920-02-44 04:37:[address] [address] Patient Name: BAILEY MUNIZ MR #: [id number] : 1940 Age/Sex: 79/M Req #: [id number] Adm Physician: NELSON MOFFETT MD Ordered by: SABIHA TANG DO Report #: [id number] Location: MED/SURG2 Room/Bed: 211-1 Procedure: [id number] CT/CTA CHEST Exam Date: 07/27/19 Exam Time: [...] COPY TO: BRIAN TANG DO Ethyl Alcohol Rjmik6813-00-37 03:29:00* Test Item Value Reference Range Interpretation Comments Ethyl Alcohol Level (test code = 5643-2) < 10.0 0.0-10.0 [facility] Natriuretic Pchhirh0871-46-32 03:11:00* Test Item Value Reference Range Interpretation Comments B-Type Natriuretic Peptide (test code = 56798-3) 185.1 0-100 H [facility] NorthwestProthrombin Cwnf9954-99-99 03:00:00* Test Item Value Reference Range Interpretation Comments Prothrombin Time (test code = 5902-2) 13.1 11.9-14.5 [facility] NorthwestProthromb Time International Ratio 2019-07-27 03:00:00* Test Item Value Reference Range Interpretation Comments Prothromb Time International Ratio (test code = 6301-6) 0.97 Oral Anticoagulant Therapy INR Values:1. Low Intensity Therapy 1.5 - 2.02 . Moderate Intensity Therapy 2.0 - 3.03. High Intensity Therapy(1) 2.5 - 3. 54. High Intensity Therapy(2) 3.0 - 4.05. Panic Value INR > 5.0 [facility] NorthwestActivated Partial Thromboplast Time 2019-07-27 03:00:00* Test Item Value Reference Range Interpretation Comments Activated Partial Thromboplast Time (test code = 60334-7) 33.5 23.8-35.[address] [facility] Cjskd8262-02-80 03:00:00* Test Item Value Reference Range Interpretation Comments Sodium Level (test code = 2951-2) 143 136-145 [facility] NorthwestPotassium Syuvg0145-10-40 03:00:00* Test Item Value Reference Range Interpretation Comments Potassium Level (test code = 2823-3) 4.2 3.5-5.1 [facility] NorthwestChloride Xwcnj1310-22-11 03:00:00* Test Item Value Reference Range Interpretation Comments Chloride Level (test code = 2075-0) 107 98-107 [facility] NorthwestCarbon Dioxide Vtioi0363-51-36 03:00:00* Test Item Value Reference Range Interpretation Comments Carbon Dioxide Level (test code = 2028-9) 23 22-29 [facility] NorthwestAnion Iyk9585-41-13 03:00:00* Test Item Value Reference Range Interpretation Comments Anion Gap (test code = 81775-6) 17.2 8-16 H [facility] NorthwestBlood Urea Iggdojxv7519-95-31 03:00:00* Test Item Value Reference Range Interpretation Comments Blood Urea Nitrogen (test code = 3094-0) 16 7-26 [facility] NorthwestCreatinine2020-02-03 03:00:00* Test Item Value Reference Range Interpretation Comments Creatinine (test code = 2160-0) 1.06 0.72-1.25 [facility] NorthwestBUN/Creatinine Mdgia1149-82-31 03:00:00* Test Item Value Reference Range Interpretation Comments BUN/Creatinine Ratio (test code = 3097-3) 15 6-25 [facility] NorthwestEstimat Glomerular Filtration Rate 2019-07-27 03:00:00* Test Item Value Reference Range Interpretation Comments Estimat Glomerular Filtration Rate (test code = 771316757) > 60 >60 Ranges were taken from the National Kidney Disease Education Program and the [facility] Kid[facility] Foundation literature.Reference ranges:60 or greater: Cxdxot61-64 ( for 3 consecutive months): Chronic kidney disease 15 or less: Kidney failureCorpus Christi Medical Center NorthwestGlucose Sjwna6023-37-88 03:00:00* Test Item Value Reference Range Interpretation Comments Glucose Level (test code = MZP7574) 129 74-118 H [facility] NorthwestCalcium Htdvp8381-13-57 03:00:00* Test Item Value Reference Range Interpretation Comments Calcium Level (test code = 94367-2) 9.2 8.4-10.2 [facility] NorthwestTotal Tllhmumoj8286-17-28 03:00:00* Test Item Value Reference Range Interpretation Comments Total Bilirubin (test code = 1975-2) 2.2 0.2-1.2 H [facility] NorthwestAspartate Amino Transf (AST/SGOT) 2019-07-27 03:00:00* Test Item Value Reference Range Interpretation Comments Aspartate Amino Transf (AST/SGOT) (test code = Aspartate Amino Transf (AST/SGOT)) 23 5-34 [facility] NorthwestAlanine Aminotransferase (ALT/SGPT) 2019-07-27 03:00:00* Test Item Value Reference Range Interpretation Comments Alanine Aminotransferase (ALT/SGPT) (test code = 1742-6) 13 0-55 [facility] Hlubgqy8151-36-40 03:00:00* Test Item Value Reference Range Interpretation Comments Total Protein (test code = 2885-2) 6.9 6.5-8.1 [facility] NorthwestAlbumin2020-02-03 03:00:00* Test Item Value Reference Range Interpretation Comments Albumin (test code = 1751-7) 3.8 3.5-5.0 [facility] NorthwestGlobulin2020-02-03 03:00:00* Test Item Value Reference Range Interpretation Comments Globulin (test code = 37765-7) 3.1 2.3-3.5 [facility] NorthwestAlbumin/Globulin Ofqef2160-44-24 03:00:00 * Test Item Value Reference Range Interpretation Comments Albumin/Globulin Ratio (test code = 1759-0) 1.2 0.8-2.0 [facility] NorthwestAlkaline Fyaoiotuqad2844-41-64 03:00:00* Test Item Value Reference Range Interpretation Comments Alkaline Phosphatase (test code = 6768-6) 99 40-150 [facility] NorthwestWhite Blood Ywdgb2937-23-12 02:59:00* Test Item Value Reference Range Interpretation Comments White Blood Count (test code = 6690-2) 6.87 4.8-10.8 [facility] NorthwestRed Blood Lomzt3216-11-66 02:59:00* Test Item Value Reference Range Interpretation Comments Red Blood Count (test code = 789-8) 5.37 4.3-5.7 [facility] NorthwestHemoglobin2020-02-03 02:59:00* Test Item Value Reference Range Interpretation Comments Hemoglobin (test code = 64701-5) 16.4 14.0-18.0 [facility] NorthwestHematocrit2020-02-03 02:59:00* Test Item Value Reference Range Interpretation Comments Hematocrit (test code = 4544-3) 48.4 38.2-49.6 [facility] NorthwestMean Corpuscular Ajhrvz4853-80-44 02:59:00* Test Item Value Reference Range Interpretation Comments Mean Corpuscular Volume (test code = 787-2) 90.1 81-99 [facility] NorthwestMean Corpuscular Xgorwgdlqf5146-74-13 02:59:00* Test Item Value Reference Range Interpretation Comments Mean Corpuscular Hemoglobin (test code = 785-6) 30.5 28-32 [facility] NorthwestMean Corpuscular Hemoglobin Concent 2019-07-27 02:59:00* Test Item Value Reference Range Interpretation Comments Mean Corpuscular Hemoglobin Concent (test code = 786-4) 33.9 31-35 [facility] NorthwestRed Cell Distribution Aybtc8845-85-19 02:59:00* Test Item Value Reference Range Interpretation Comments Red Cell Distribution Width (test code = 52861-6) 14.0 11.7 -14.4 [facility] NorthwestPlatelet Pwuqr8793-87-36 02:59:00* Test Item Value Reference Range Interpretation Comments Platelet Count (test code = 777-3) 124 140-360 L [facility] NorthwestNeutrophils (%) (Auto)2019-07-27 02:59:00 * Test Item Value Reference Range Interpretation Comments Neutrophils (%) (Auto) (test code = 30613-6) 47.2 38.7-80.0 [facility] NorthwestLymphocytes (%) (Auto)2019-07-27 02:59:00 * Test Item Value Reference Range Interpretation Comments Lymphocytes (%) (Auto) (test code = 736-9) 36.1 18.0-39.1 [facility] NorthwestMonocytes (%) (Auto)2019-07-27 02:59:00* Test Item Value Reference Range Interpretation Comments Monocytes (%) (Auto) (test code = 5905-5) 10.8 4.4-11.3 [facility] NorthwestEosinophils (%) (Auto)2019-07-27 02:59:00 * Test Item Value Reference Range Interpretation Comments Eosinophils (%) (Auto) (test code = 713-8) 4.9 0.0-6.0 [facility] NorthwestBasophils (%) (Auto)2019-07-27 02:59:00* Test Item Value Reference Range Interpretation Comments Basophils (%) (Auto) (test code = 706-2) 0.7 0.0-1.0 [facility] NorthwestIM GRANULOCYTES %2019-07-27 02:59:00* Test Item Value Reference Range Interpretation Comments IM GRANULOCYTES % (test code = IM GRANULOCYTES %) 0.3 0.0- 1.0 [facility] NorthwestNeutrophils # (Auto)2019-07-27 02:59:00* Test Item Value Reference Range Interpretation Comments Neutrophils # (Auto) (test code = 751-8) 3.2 2.1-6.9 [facility] NorthwestLymphocytes # (Auto)2019-07-27 02:59:00* Test Item Value Reference Range Interpretation Comments Lymphocytes # (Auto) (test code = 74696-1) 2.5 1.0-3.2 [facility] NorthwestMonocytes # (Auto)2019-07-27 02:59:00* Test Item Value Reference Range Interpretation Comments Monocytes # (Auto) (test code = 742-7) 0.7 0.2-0.8 [facility] NorthwestEosinophils # (Auto)2019-07-27 02:59:00* Test Item Value Reference Range Interpretation Comments Eosinophils # (Auto) (test code = 711-2) 0.3 0.0-0.4 [facility] NorthwestBasophils # (Auto)2019-07-27 02:59:00* Test Item Value Reference Range Interpretation Comments Basophils # (Auto) (test code = 704-7) 0.1 0.0-0.1 [facility] NorthwestAbsolute Immature Granulocyte (auto 2019-07-27 02:59:00* Test Item Value Reference Range Interpretation Comments Absolute Immature Granulocyte (auto (josr t code = Absolute Immature Granulocyte (auto) 0.02 0-0.1 [facility] NorthwestCHEST SINGLE (PORTABLE)2019-07-27 02:58:[address] [place] [address] Patient Name: BAILEY MUNIZ MR #: [id number] : 1940 Age/Sex: 79/M Req #: [id number] Adm Physician: Ordered by: SABIHA TANG DO Report #: [id number] Location: ER Room/Bed: Procedure: [id number] DX/CHEST SINGLE (PORTABLE) Exam Date: 07/27/19 Exam [...] 3:03 AM Dictated By: MANDY SPEAR MD [facility] lisa Signed By: MANDY SPEAR MD on 07/27/19302 Transcribed By: ARLINE on 07/27/19302 COPY TO: SABIHA TANG DO Bedside Glucose 2019-07-27 02:38:00* Test Item Value Reference Range Interpretation Comments Bedside Glucose (test code = 76924-4) 142 70-120 H Meter ID: [id number]
[2020-04-12 17:47] LABS: ALBUMIN/GLOBULIN RATIO 0.7 (0.8-2.0); ANION GAP 15.6 mmol/L (8-16); CALCIUM 8.6 mg/dL (8.4-10.2); CREATININE, SERUM 1.21 mg/dL (0.72-1.25); POTASSIUM 3.6 mmol/L (3.5-5.1)
[2020-04-12 17:50] LABS: BACTERIA,URINE MANY /HPF; EPITHELIAL CELLS,URINE FEW /LPF
[2020-04-12] MEDS ORDERED: NIFEDIPINE ER30 M1 PO (18:31)
--- NOTE | 2020-04-12 18:35 | NUR ---
PHONE REPORT RECEIVED FROM ER NURSE. PATIENT FOUND LYING IN BED IN NO ACUTE DISTRESS. PATIENT IS AAOX4 AND DENIES NEEDS AT THIS TIME. PT WAS ORIENTED TO CALL LIGHT AND UNIT.PT WAS EDUCATED ON FALL RISK PRECAUTIONS AND VERBALIZED UNDERSTANDING. CALL LIGHT AND BELONGINGS PLACED NEARBY. WILL CONTINUE TO MONITOR.
[2020-04-12 18:40] VITALS: BP 123/53
[2020-04-12] MEDS: SODIUM CHLORIDE 0.9% 1000ML 1,000 ML IV SCH ×2 (18:52→23:51)
--- NOTE | 2020-04-12 19:15 | NUR ---
patient received awake, alert, lying quietly in bed. vss. patient denies pain at this time. admit assessment/history obtained. call malik placed within reach. patient instructed to call for assistance when needed.
--- NOTE | 2020-04-12 19:18 | NUR ---
SBAR REPORT GIVEN TO PM SHIFT CHARGE NURSE
--- NOTE | 2020-04-12 19:18 | Diagnostic Imaging Report ---
EXAM: Right Upper Quadrant Ultrasound with Doppler INDICATION: obstructive jaundice COMPARISON: CT chest on 07/27/2019. TECHNIQUE: Transverse and longitudinal images of the right upper abdomen were obtained. Grayscale, color Doppler and spectral waveform analysis of the hepatic vasculature and splenic vein were performed. FINDINGS: Liver: Size: 15.6 cm in the right midclavicular line, normal Appearance: Normal echogenicity, smooth contour Mass: No focal masses Gallbladder: Stones/Sludge: None Wall: 0.3 cm Appearance: No pericholecystic fluid or hydrops. Sonographic Lynne's Sign: Negative Bile Ducts: Intrahepatic Ducts: No dilatation Extrahepatic Ducts: Common bile duct measures 1.2 cm, no dilatation Pancreas: Not well visualized. Right Kidney: Size: 13.2 x 5.7 x 5.7 cm Echogenicity: Normal Parenchymal thickness: Normal Collecting system: No hydronephrosis Stones: None Cyst/Mass: There are cysts in the right kidney which measure 1.6 x 1.3 x 1.4 cm and 1.0 x 0.7 x 0.8 cm Vessels: Main Portal Vein: Diameter: 1.2 cm, normal. Normal flow direction. Aorta: Visualized portions are normal Inferior Vena Cava: Visualized portions are normal Free Fluid: No ascites or pleural effusion IMPRESSION: Distended gallbladder with mildly thickened montelongo and dilated common bile duct. Constellation of findings are suggestive of acute cholecystitis. No evidence of cholelithiasis or choledocholithiasis. However, recommend further evaluation with MRCP or ERCP. LV hyper to kid LV hypo to spleen Slaughter hyper to LV Liver Male < 16 cm Female < 15 cm Kidneys: NL 9-12 cm, <13 cm Spleen < 12 cm CBD < 7 mm CHD < 4-5 mm GB Wall < 3 mm Hydrops > 10 x 5 cm PV < 13 mm Panc. duct 3-2-1 Signed by: Mitchell Jaquez MD on 04/12/2020 7:15 PM
[2020-04-12 20:07] VITALS: BP 123/53
[2020-04-12 20:29] VITALS: BP 122/69
--- NOTE | 2020-04-12 20:40 | NUR ---
patient requesting sleep medication. call placed to re: sleeping medication. no orders noted at this time.
[2020-04-12 22:12] VITALS: BP 122/69
[2020-04-13] VITALS (8 sets, daily range): BP systolic 119–131; BP diastolic 59–85
[2020-04-13] MEDS: PIPER-TAZ 3.375 GM 50 ML IV SCH ×4 (05:47→17:42)
[2020-04-13 06:32] LABS: BASOPHILS # (AUTO) 0.1 (0.0-0.1); BASOPHILS % 0.7 % (0.0-1.0); EOSINOPHILS % 0.6 % (0.0-6.0); HEMOGLOBIN 11.7 g/dL (14.0-18.0); LYMPHOCYTES # (AUTO) 0.9 (1.0-3.2); LYMPHOCYTES % 11.7 % (18.0-39.1); MEAN CORPUSCULAR HEMOGLOBIN 30.9 pg (28-32); MEAN CORPUSCULAR HGB CONC 32.5 g/dL (31-35); MONOCYTES # (AUTO) 0.6 (0.2-0.8); MONOCYTES % 8.8 % (4.4-11.3); NEUTROPHILS # (AUTO) 5.7 (2.1-6.9); NEUTROPHILS % 77.8 % (38.7-80.0); PLATELET COUNT 222 x10e3/uL (140-360); RED BLOOD COUNT 3.79 x10e6/uL (4.3-5.7); RED CELL DISTRIBUTION WIDTH 16.7 % (11.7-14.4)
[2020-04-13 06:57] LABS: ALBUMIN 2.4 g/dL (3.5-5.0); ALBUMIN/GLOBULIN RATIO 0.6 (0.8-2.0); ANION GAP 14.5 mmol/L (8-16); CALCIUM 8.1 mg/dL (8.4-10.2); CREATININE, SERUM 1.18 mg/dL (0.72-1.25); POTASSIUM 4.5 mmol/L (3.5-5.1)
--- NOTE | 2020-04-13 08:22 | Consultation ---
DATE OF CONSULTATION: 04/13/2020 HISTORY OF PRESENT ILLNESS: This 80-year-old gentleman who has history of hypertension, presented to the hospital, admitted to Dr. Rand's office yesterday because of problems with jaundice and some pain mainly in between his shoulder blade. He said that he noticed becoming jaundice several days ago. He denies any nausea or vomiting along with this problem. His workup revealed that his bilirubin is 7.3 with AST of 140 and ALT of 70. He had an abdominal ultrasound, which showed distended gallbladder with gallstones and also bile duct of 1.2 cm. An MRCP is pending at this point. PAST MEDICAL HISTORY: His medical problem is significant for history of hypertension as mentioned before. MEDICATIONS: On admission including allopurinol, Plavix, digoxin, doxazosin, finasteride, glipizide, isosorbide, metoprolol, nifedipine, pantoprazole, simvastatin. ALLERGIES: NONE. SOCIAL HISTORY: Denies any alcohol use. FAMILY HISTORY: Contributory. REVIEW OF SYSTEMS: Denies any chest pain or shortness of breath. Denies any dysphagia or odynophagia. Denies any dysuria, hematuria, or any kind of syncopal episodes. PHYSICAL EXAMINATION: GENERAL: The patient is awake, alert, appears to be stable, not in acute distress at this point. VITAL SIGNS: Afebrile currently with stable vital signs. HEAD, EYES, EARS, NOSE, AND THROAT: Normocephalic and atraumatic. Sclerae anicteric. NECK: Supple. HEART: Regular. LUNGS: Clear. ABDOMEN: Soft. There is some mild epigastric tenderness. There is no rebound or mass. EXTREMITIES: No clubbing. LABORATORY VALUES: Significant for WBC of 8.57, hemoglobin of 13.8 yesterday, down to 11.7. Bilirubin of 7.3, AST of 140, ALT of 70, alkaline phosphatase of 336. An ultrasound shows evidence of distended gallbladder with thickened wall and dilated common bile duct up to 1.2 cm. IMPRESSION: 1. Abdominal pain with likely gallstone with possible choledocholithiasis. 2. . RECOMMENDATION: Continue on antibiotic at this point. We will do MRCP as planned and we will proceed with ERCP for further evaluation tomorrow and follow labs and clinically. MD JAVY Mckeon/SONA /[id number] cc: Dr. Giorgi Bauer MD
[2020-04-13] MEDS: NIFEDIPINE CR 30 MG TAB PO SCH (09:00)
[2020-04-13] MEDS ORDERED: ENALAPRILAT DIHYDRATE 1.25 MG/ML 2ML VIAL IV PRN (09:00)
[2020-04-13] MEDS ORDERED: DEXTROSE 50% SYRINGE 50 ML IV PRN (09:00)
[2020-04-13] MEDS: DIGOXIN 0.125 MG TAB PO SCH (09:00)
--- NOTE | 2020-04-13 09:31 | NUR ---
PT OFF THE FLOOR FOR MRI MRCP
--- NOTE | 2020-04-13 10:34 | NUR ---
PATIENT BACK TO FLOOR FROM MRI MRCP
--- NOTE | 2020-04-13 10:53 | History and Physical ---
PRIMARY CARE PHYSICIAN: Dr. Mikayla Bauer. CONSULTANTS: 1. Dr. Leonard Rand, Surgery. 2. Dr. Raji Gordon, Gastroenterology. CHIEF COMPLAINT: Obstructive jaundice with abdominal pain and acute cholecystitis. HISTORY OF PRESENT ILLNESS: The patient is a 80-year-old male with multiple chronic medical problems, poor historian, but overall he has coronary artery disease with status post coronary artery bypass graft in the past. He also has chronic mid and lower back pain along with diabetes type 2, hypertension, and an enlarged prostate along with dyslipidemia, presented to the hospital emergency room sent by Dr. Leonard Rand for upper abdominal pain with obstructive jaundice. The patient in the emergency room has elevated liver enzyme of AST 140, ALT 70, but alkaline phosphate of 336 along with total bilirubin was 7.3. The patient had a normal WBC and hemoglobin and hematocrit. Urinalysis showed many bacteria, wbc was none, however, cloudy urine. Serology; the coronavirus PCR is still pending. The patient was placed in the hospital, was seen and antibiotic initiated. The patient was placed in the emergency room on IV fluid and Zosyn antibiotics, pain medication and antiemetic. The patient is otherwise stable. He has complained of pain, but improved with pain medication. The patient will be admitted for further workup and will have gallbladder surgery. The gallbladder ultrasound showed distended gallbladder with thickening wall and dilated common bile duct. It is also suggestive of acute cholecystitis. PAST MEDICAL HISTORY: Coronary artery disease with coronary artery bypass graft surgery. Hypertension. Dyslipidemia. Enlarged prostate. Diabetes type 2. Anxiety disorder. Reflux history. Gout. PAST SURGICAL HISTORY: Coronary artery bypass graft surgery. SOCIAL HISTORY: The patient does not smoke or use alcohol. No regular drug. ALLERGIES: NO KNOWN ALLERGIES. HOME MEDICATIONS: The patient is on allopurinol, Xanax, Plavix, digoxin, doxazosin, finasteride, glipizide, isosorbide monohydrate, metoprolol succinate, nifedipine ER, Protonix, simvastatin, and testosterone injection. REVIEW OF SYSTEMS: Abdominal pain. Jaundice. Lower back pain. Urinary bladder spasm. No chest pain. No short of breath. No neurological deficit. Some nausea, but no vomiting. PHYSICAL EXAMINATION: VITAL SIGNS: Temperature is 98, blood pressure 123/53, pulse rate is 83, and respirations 20. GENERAL: The patient is not in acute distress. He is awake. HEENT: Normocephalic and atraumatic. Pupils reactive. The patient is jaundiced. Positive for icteric. NECK: Supple. No JVD. PULMONARY: Clear bilaterally. No wheezing or rales. CARDIOVASCULAR: Regular rate and rhythm. ABDOMEN: Soft. Tenderness in the right upper quadrant with no rebound or guarding. EXTREMITIES: No cyanosis or edema. NEUROLOGIC: No gross focal deficit. LABORATORY DATA: WBC is 8.6, hemoglobin 13.8, hematocrit 42, and platelet is 233. Chemistry; sodium is 138, potassium 3.6, chloride 103, bicarb 23, BUN 19 and creatinine 1.2, glucose is 111. AST is 140, ALT 70, alkaline phosphatase 336, albumin is 3.0. Urinalysis, cloudy urine many bacteria. Serology; coronavirus PCR pending. Gallbladder ultrasound show acute cholecystitis. Kidney cyst noticed. IMPRESSION: 1. Obstructive jaundice with dilated common bile duct, could be stones. 2. Acute cholecystitis with thickening gallbladder and then distended gallbladder as well. 3. Abnormal liver enzymes from the above. 4. Baseline diabetes type 2, hypertension, reflux, coronary artery disease with previous bypass graft surgery. The patient is on Plavix. PLAN: Nothing by mouth except for medication. Antibiotics Zosyn. IV fluids. MRCP. Consultation with Dr. Gordon and Dr. Leonard Rand is done. Cardiology consultation for monitoring. A 2D echocardiogram. Preparation for the patient to have surgery. Hold off the aspirin and Plavix. PPI. Blood pressure control. We will monitor the patient closely. MD SAM Barnhart/SONA /[id number]
[2020-04-13] MEDS: INSULIN LISPRO 100 UNIT/1 ML 3ML VIAL SQ SCH ×2 (12:00→17:42)
[2020-04-13] MEDS: PANTOPRAZOLE 40 MG 10ML VIAL INJ SCH (12:30)
[2020-04-13] MEDS: SODIUM CHLORIDE 0.9% 1000ML 1,000 ML IV SCH ×2 (13:03→20:44)
[2020-04-13] MEDS: ALPRAZOLAM 0.5 MG TAB PO SCH (13:25)
--- NOTE | 2020-04-13 14:47 | Diagnostic Imaging Report ---
MRI MRCP WO HISTORY: ^CHANGED ORDER DATE COMPARISON: CTA chest abdomen and pelvis 07/27/2019 TECHNIQUE: MRI of the abdomen with exam tailored to evaluate the biliary tree and the pancreas was performed without gadolinium contrast. Multiplanar, multisequence images, including heavily T2-weighted MRCP sequences were obtained. FINDINGS: Motion degraded exam Hepatobiliary Findings: Bile ducts: Mild intra- and extrahepatic biliary ductal dilation. Multiple filling defects in the mid to distal common bile duct which measures up to 11 mm in diameter. Liver: Unremarkable. Gallbladder: Mild gallbladder wall thickening and mild pericholecystic fluid. Gallbladder is mildly distended. No definite gallstones visualized. Pancreas: Unremarkable. Additional Findings: Lung bases: Trace atelectasis Spleen: Mild splenomegaly, 13.9 cm in long axis Adrenals: Unremarkable Kidneys and ureters: The left kidney is markedly diminutive. Right kidney has an extrarenal pelvis, unchanged. There is nonspecific perinephric fluid on the right, similar to prior exam. Multiple right renal cysts. Moderate thickening of the urothelium in the right renal pelvis. Bowel: Unremarkable. Lymph nodes: A 9 mm short axis retroperitoneal lymph node, retrocaval at the level of the right kidney, unchanged from 07/27/2019 (series 6 image 38), nonspecific. Peritoneum: Trace ascites. Vessels: Unremarkable Abdominal wall: Unremarkable. Bones: Mild leftward curvature of the lumbar spine. Degenerative changes. Small intraosseous hemangioma at L3. IMPRESSION: Suboptimal exam related to patient motion. 1. Filling defects in the common bile duct, likely related to choledocholithiasis. Mild intra and extrahepatic biliary ductal dilation. 2. Distention of the gallbladder with mild gallbladder wall thickening and pericholecystic fluid, query acute cholecystitis. 3. Redemonstration of a markedly atrophic left kidney, extrarenal pelvis on the right, and diffuse urothelial thickening in the renal pelvis, recommend correlation with urinalysis. 4. Nonspecific mild splenomegaly. Trace ascites. Signed by: Jaspreet Frias MD on 04/13/2020 2:43 PM
[2020-04-13] MEDS: ISOSORBIDE MONONITRATE 20 MG TAB PO SCH ×2 (17:41→20:30)
[2020-04-13] MEDS: ENOXAPARIN SOD INJ 40 MG/0.4 ML SYR SC SCH (17:41)
--- NOTE | 2020-04-13 18:55 | NUR ---
SBAR BEDSIDE REPORT GIVEN TO PM SHIFT RN. PATIENT IN STABLE CONDITION, NO DISTRESS.
--- NOTE | 2020-04-13 19:00 | NUR ---
Patient visited in room during nursing rounds. Patient alert and oriented x3. Ambulatory in room prn. On IVF (NS at 100ml/hr) infusing. Pt is jaundiced all over body including bilateral eyes. No c/o pain or any discomfort at this time. Will monitor pt closely.
[2020-04-13] MEDS: METOPROLOL SUCCINATE 25 MG TAB XL PO SCH (20:30)
[2020-04-13] MEDS: DOXAZOSIN MESYLATE 2 MG TAB PO SCH (20:30)
[2020-04-13] MEDS: FINASTERIDE 5 MG TAB PO SCH (20:30)
--- NOTE | 2020-04-13 20:49 | NUR ---
Patient signed consent form and agreed to have the ERCP procedure done tomorrow (04/14/20). Pt aware will be NPO at midnight tonight.
[2020-04-14] VITALS: BP 113/72
[2020-04-14 04:30] VITALS: BP 121/88
[2020-04-14] MEDS: SODIUM CHLORIDE 0.9% 1000ML 1,000 ML IV SCH ×3 (05:00→20:11)
[2020-04-14 05:39] LABS: BASOPHILS % 1.1 % (0.0-1.0); EOSINOPHILS # (AUTO) 0.1 (0.0-0.4); EOSINOPHILS % 2.1 % (0.0-6.0); HEMATOCRIT 32.7 % (38.2-49.6); HEMOGLOBIN 10.9 g/dL (14.0-18.0); LYMPHOCYTES # (AUTO) 0.7 (1.0-3.2); LYMPHOCYTES % 19.7 % (18.0-39.1); MEAN CORPUSCULAR HGB CONC 33.3 g/dL (31-35); MEAN CORPUSCULAR VOLUME 92.9 fL (81-99); MONOCYTES # (AUTO) 0.4 (0.2-0.8); MONOCYTES % 11.2 % (4.4-11.3); NEUTROPHILS # (AUTO) 2.5 (2.1-6.9); NEUTROPHILS % 65.4 % (38.7-80.0); PLATELET COUNT 202 x10e3/uL (140-360); RED BLOOD COUNT 3.52 x10e6/uL (4.3-5.7); RED CELL DISTRIBUTION WIDTH 16.8 % (11.7-14.4)
[2020-04-14 05:50] LABS: PROTHROMBIN TIME 13.7 seconds (11.9-14.5)
[2020-04-14] MEDS: PIPER-TAZ 3.375 GM 50 ML IV SCH ×4 (05:54→18:11)
[2020-04-14] MEDS: INSULIN LISPRO 100 UNIT/1 ML 3ML VIAL SQ SCH ×4 (05:54→18:00)
[2020-04-14 05:58] LABS: ALANINE AMINOTRANSFERASE 44 IU/L (0-55); ALBUMIN 2.1 g/dL (3.5-5.0); ALBUMIN/GLOBULIN RATIO 0.6 (0.8-2.0); ALKALINE PHOSPHATASE 193 IU/L (40-150); ANION GAP 11.7 mmol/L (8-16); BLOOD UREA NITROGEN 17 mg/dL (7-26); BUN/CREATININE RATIO 16 (6-25); CALCIUM 7.7 mg/dL (8.4-10.2); CARBON DIOXIDE 22 mmol/L (22-29); CHLORIDE 110 mmol/L (98-107); CREATININE, SERUM 1.07 mg/dL (0.72-1.25); EST GLOMERULAR FILTRATION RATE > 60 ML/MIN (60-); GLUCOSE 78 mg/dL (74-118); POTASSIUM 3.7 mmol/L (3.5-5.1); SODIUM 140 mmol/L (136-145)
--- NOTE | 2020-04-14 06:50 | NUR ---
SBAR BEDSIDE REPORT RECEIVED FROM PM SHIFT RN. PATIENT FOUND LYING IN BED IN NO ACUTE DISTRESS. PATIENT AAOX4 AND ABLE TO MAKE NEEDS KNOWN. PATIENT EDUCATED ON FALL RISK PRECAUTIONS AND VERBALIZED UNDERSTANDING. CALL LIGHT AND BELONGINGS PLACED NEARBY. WILL CONTINUE TO MONITOR.
[2020-04-14 07:00] VITALS: BP 123/74
[2020-04-14 08:00] VITALS: BP 123/74
[2020-04-14] MEDS: ISOSORBIDE MONONITRATE 20 MG TAB PO SCH ×3 (09:00→21:00)
[2020-04-14] MEDS: DIGOXIN 0.125 MG TAB PO SCH (09:00)
[2020-04-14] MEDS: NIFEDIPINE CR 30 MG TAB PO SCH (09:00)
[2020-04-14] MEDS: ALPRAZOLAM 0.5 MG TAB PO SCH (09:00)
[2020-04-14] MEDS: PANTOPRAZOLE 40 MG 10ML VIAL INJ SCH (09:30)
[2020-04-14] MEDS ORDERED: LIDOCAINE HCL 2% LOCAL INJ 5 ML SDV VIAL INJ ONE (12:25)
[2020-04-14] MEDS ORDERED: SEVOFLURANE INHAL SOLN 250 ML PEN BTL ONE (12:25)
[2020-04-14] MEDS ORDERED: SUCCINYLCHOLINE CHLORIDE 20 MG/ML 10ML VIAL ONE (12:25)
[2020-04-14] MEDS ORDERED: PROPOFOL IV EMULSION 10 MG/ML 20 ML VIAL ONE (12:25)
[2020-04-14] MEDS ORDERED: ROCURONIUM BROMIDE 10 MG/ML 5ML VIAL IV ONE (12:25)
[2020-04-14] MEDS ORDERED: IOPAMIDOL 300MG/ML 50ML INFUS..BTL IV ONE (12:37)
[2020-04-14] MEDS ORDERED: FENTANYL CITRATE/PF 100MCG/2 ML INJ ONE (12:42)
[2020-04-14] MEDS ORDERED: PIPER-TAZ 3.375 GM 50 ML ONE (13:17)
--- NOTE | 2020-04-14 14:34 | Diagnostic Imaging Report ---
Fluoroscopy, less than 1 hour Indication: ^[id number] ^1323 ^ERCP Comparison: MRCP dated 04/13/20 Findings: Fluoroscopic assistance was provided during endoscopic retrograde cholangiopancreatography. Fluoroscopic images taken were interpreted by the referring clinician. Please see separate procedure note for full details. An endoscope is identified with a wire traversing the common bile duct. Initial injection demonstrates multiple filling defects and dilated common bile duct. A balloon is identified along the course of the common bile duct with multiple balloon sweeps. Final image demonstrates no definite retained stone. Total Fluoroscopy time: 2 minutes and 22 seconds Radiation dose: 103 mGy Impression: Fluoroscopic guidance for endoscopic retrograde cholangiopancreatography with multiple balloon sweeps. Initial intraluminal filling defects of the common bile duct are no longer visualized at the end of the procedure. See operative report for further details. Signed by: Evelio Marsh MD on 04/14/2020 2:31 PM
[2020-04-14 16:04] VITALS: BP 125/73
[2020-04-14] MEDS: ENOXAPARIN SOD INJ 40 MG/0.4 ML SYR SC SCH (18:25)
--- NOTE | 2020-04-14 18:45 | NUR ---
PATIENT IS STABLE. REPORT GIVEN TO PM SHIFT RN
[2020-04-14 20:00] VITALS: BP 144/81
[2020-04-14] MEDS: DOXAZOSIN MESYLATE 2 MG TAB PO SCH (21:00)
[2020-04-15] VITALS (7 sets, daily range): BP systolic 120–144; BP diastolic 70–94
[2020-04-15] MEDS: FINASTERIDE 5 MG TAB PO SCH ×2 (00:04→20:24)
[2020-04-15] MEDS: METOPROLOL SUCCINATE 25 MG TAB XL PO SCH ×2 (00:05→20:24)
[2020-04-15] MEDS: PIPER-TAZ 3.375 GM 50 ML IV SCH ×4 (01:19→18:00)
[2020-04-15] MEDS: INSULIN LISPRO 100 UNIT/1 ML 3ML VIAL SQ SCH ×5 (06:00→20:24)
[2020-04-15 06:22] LABS: ALBUMIN 2.1 g/dL (3.5-5.0); BILIRUBIN,DIRECT 5.2 mg/dL (0.0-0.5)
--- NOTE | 2020-04-15 06:50 | NUR ---
SBAR BEDSIDE REPORT RECEIVED FROM PM SHIFT RN. PATIENT WAS FOUND LYING IN BED IN NO ACUTE DISTRESS. PATIENT REMAINS NPO FOR SURGERY. PATIENT WAS EDUCATED ON FALL RISK PRECAUTIONS AND VERBALIZED UNDERSTANDING. CALL LIGHT AND BELONGINGS PLACED NEARBY. WILL CONTINUE TO MONITOR.
[2020-04-15] MEDS: SODIUM CHLORIDE 0.9% 1000ML 1,000 ML IV SCH (07:39)
[2020-04-15] MEDS: NIFEDIPINE CR 30 MG TAB PO SCH (09:00)
[2020-04-15] MEDS: DIGOXIN 0.125 MG TAB PO SCH (09:00)
[2020-04-15] MEDS: ISOSORBIDE MONONITRATE 20 MG TAB PO SCH ×3 (09:00→20:24)
[2020-04-15] MEDS: ALPRAZOLAM 0.5 MG TAB PO SCH (09:00)
[2020-04-15] MEDS: PANTOPRAZOLE 40 MG 10ML VIAL INJ SCH (09:24)
--- NOTE | 2020-04-15 09:31 | NUR ---
PATIENT OFF THE FLOOR TO SURGERY
--- NOTE | 2020-04-15 11:19 | NUR ---
IMM letter delivered and explained to pt. He verbalized understanding. States he will never appeal his discharge. Copy given to pt. Signed copy placed in chart.
[2020-04-15] MEDS ORDERED: BUPIVACAINE HCL 0.5% INJ 30 ML VIAL INJ ONE (11:44)
[2020-04-15] MEDS ORDERED: HYDROCODONE/APAP 7.5MG-325MG 1 EA TAB PO PRN (13:45)
[2020-04-15] MEDS ORDERED: FENTANYL CITRATE/PF 100MCG/2 ML INJ ONE ×2 (13:58→14:30)
--- NOTE | 2020-04-15 14:27 | Operative Report ---
DATE OF PROCEDURE: 04/15/2020 SURGEON: Leonard Rand MD PREOPERATIVE DIAGNOSIS: Cholecystitis. 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 OPERATION PERFORMED: Laparoscopic cholecystectomy. ANESTHESIA: General. COMPLICATIONS: None. ESTIMATED BLOOD LOSS: Minimal. DESCRIPTION OF PROCEDURE: With the patient lying in bed in the supine position under good general endotracheal anesthesia, the abdomen was prepped with Betadine solution and draped in the usual manner. A Veress needle was introduced into the umbilicus and pneumoperitoneum was established without any difficulty. An 11 mm trocar was placed into the umbilicus and a 10 mm video laparoscope was placed into the intraabdominal cavity. Under direct vision, three 5 mm trocars were placed in the right subcostal region. Video laparoscopy at this point revealed the gallbladder was totally covered up with adhesions. There were some signs of portal hypertension with some enlarged veins in the omentum and the mesentery and also some cirrhotic changes of the liver. The rest of the abdominal exploration was otherwise within normal limits. The patient had undergone yesterday an ERCP with removal of multiple common bile duct stones. The adhesions to the gallbladder were then slowly and carefully taken down. The neck of the gallbladder was then inspected. The peritoneum was opened and the cystic duct was identified. The cystic duct was then followed to its junction with the common duct. The cystic duct was then circumferentially dissected away from the common duct, doubly clipped and divided. The cystic artery was similarly doubly clipped and divided. The gallbladder was then slowly and carefully taken off the liver bed using the cautery scissor. There was some large venous tributaries in the liver bed consistent with a portal hypertension on the left. The gallbladder was totally and completely removed and hemostasis was ascertained. The gallbladder was then grasped through the umbilical port and removed without any problems. Video laparoscopy was then again carried out, although the excess fluid was aspirated. Hemostasis was ascertained. A SurgiSeal was then placed in the liver bed. The pneumoperitoneum was evacuated and all the trocars were removed under direct vision. The midline fascia at the umbilicus was then closed with a [id number] of 0 Vicryl. All layers were infiltrated on the way out with solution of 0.25% Marcaine. Subcutaneous tissue was approximated with 3-0 Vicryl and the skin was closed with subcuticular 5-0 Vicryl. Benzoin, Steri-Strips, and Band-Aids were applied. The sponge, lap, and needle count was correct. The patient tolerated the procedure well and returned to the recovery room in stable condition. MD YASMEEN Marshall/SONA /[id number]
[2020-04-15] MEDS: HYDROMORPHONE 1MG/1ML INJ IV PRN ×3 (15:30→23:48)
[2020-04-15] MEDS ORDERED: PROPOFOL IV EMULSION 10 MG/ML 20 ML VIAL ONE (17:56)
[2020-04-15] MEDS ORDERED: GLYCOPYRROLATE INJ 0.2 MG/ML VIAL ONE (17:56)
[2020-04-15] MEDS ORDERED: ONDANSETRON HCL INJ 2MG/ML 2ML 2 MG/ML VIAL ONE (17:56)
[2020-04-15] MEDS ORDERED: LIDOCAINE HCL 2% LOCAL INJ 5 ML SDV VIAL INJ ONE (17:56)
[2020-04-15] MEDS ORDERED: LIDOCAINE HCL 2% JELLY 5 ML TUBE ONE (17:56)
[2020-04-15] MEDS ORDERED: SEVOFLURANE INHAL SOLN 250 ML PEN BTL ONE (17:56)
[2020-04-15] MEDS ORDERED: EPHEDRINE SULFATE INJ 50 MG/ML VIAL ONE (17:56)
[2020-04-15] MEDS ORDERED: NEOSTIGMINE 1 MG/ML 10ML VIAL ONE (17:56)
[2020-04-15] MEDS ORDERED: ROCURONIUM BROMIDE 10 MG/ML 5ML VIAL IV ONE (17:56)
--- NOTE | 2020-04-15 18:45 | NUR ---
BEDSIDE SHIFT REPORT GIVEN TO PM SHIFT NURSE. PATIENT IS STABLE.
--- NOTE | 2020-04-15 19:00 | NUR ---
BEDSIDE SHIFT REPORT GIVEN TO PM SHIFT NURSE. PATIENT IS STABLE
--- NOTE | 2020-04-15 19:18 | NUR ---
PATIENT RETURNED TO THE FLOOR FROM SURGERY Addendum: 04/15/20 at 1955 by Akilah Molina RN PATIENT RETURNED TO THE FLOOR FROM SURGERY AT [id number]
[2020-04-15] MEDS ORDERED: DEXTROSE 50% SYRINGE 50 ML IV PRN (19:45)
[2020-04-15] MEDS: DOXAZOSIN MESYLATE 2 MG TAB PO SCH (20:23)
[2020-04-16] MEDS: PIPER-TAZ 3.375 GM 50 ML IV SCH ×2 (00:50→05:07)
[2020-04-16] MEDS: SODIUM CHLORIDE 0.9% 1000ML 1,000 ML IV SCH ×2 (05:07→07:00)
[2020-04-16 05:46] LABS: BASOPHILS # (AUTO) 0.1 (0.0-0.1); BASOPHILS % 0.9 % (0.0-1.0); EOSINOPHILS # (AUTO) 0.1 (0.0-0.4); EOSINOPHILS % 0.9 % (0.0-6.0); HEMATOCRIT 32.9 % (38.2-49.6); HEMOGLOBIN 10.6 g/dL (14.0-18.0); LYMPHOCYTES # (AUTO) 1.3 (1.0-3.2); LYMPHOCYTES % 18.6 % (18.0-39.1); MEAN CORPUSCULAR HEMOGLOBIN 30.3 pg (28-32); MEAN CORPUSCULAR HGB CONC 32.2 g/dL (31-35); MONOCYTES # (AUTO) 0.5 (0.2-0.8); MONOCYTES % 7.7 % (4.4-11.3); NEUTROPHILS # (AUTO) 4.9 (2.1-6.9); NEUTROPHILS % 71.3 % (38.7-80.0); PLATELET COUNT 216 x10e3/uL (140-360); RED CELL DISTRIBUTION WIDTH 17.6 % (11.7-14.4)
[2020-04-16 06:06] LABS: ALANINE AMINOTRANSFERASE 35 IU/L (0-55); ALBUMIN/GLOBULIN RATIO 0.6 (0.8-2.0); ALKALINE PHOSPHATASE 159 IU/L (40-150); ANION GAP 13.8 mmol/L (8-16); BLOOD UREA NITROGEN 12 mg/dL (7-26); BUN/CREATININE RATIO 12 (6-25); CALCIUM 7.6 mg/dL (8.4-10.2); CARBON DIOXIDE 21 mmol/L (22-29); CHLORIDE 109 mmol/L (98-107); CREATININE, SERUM 1.02 mg/dL (0.72-1.25); EST GLOMERULAR FILTRATION RATE > 60 ML/MIN (60-); GLUCOSE 76 mg/dL (74-118); POTASSIUM 3.8 mmol/L (3.5-5.1); SODIUM 140 mmol/L (136-145)
[2020-04-16 06:10] VITALS: BP 121/74
--- NOTE | 2020-04-16 06:45 | NUR ---
SBAR BEDSIDE REPORT RECEIVED FROM PM SHIFT RN. PATIENT FOUND LYING IN BED IN NO ACUTE DISTRESS. PATIENT IS AAOX4 AND DENIES ANY NEEDS AT THIS TIME. PATIENT WAS EDUCATED ON FALL RISK PRECAUTIONS AND VERBALIZED UNDERSTANDING. CALL LIGHT AND BELONGINGS PLACED NEARBY. WILL CONTINUE TO MONITOR.
[2020-04-16] MEDS: INSULIN LISPRO 100 UNIT/1 ML 3ML VIAL SQ SCH (07:30)
[2020-04-16 08:00] VITALS: BP 121/74
[2020-04-16 08:50] VITALS: BP 134/87
[2020-04-16] MEDS: PANTOPRAZOLE 40 MG 10ML VIAL INJ SCH (09:00)
[2020-04-16] MEDS: ALPRAZOLAM 0.5 MG TAB PO SCH (09:00)
--- NOTE | 2020-04-16 10:40 | Discharge Summary ---
PRIMARY CARE PHYSICIAN: Dr. Mikayla Bauer. CONSULTING PHYSICIANS: 1. Dr. Raji Gordon. 2. Dr. Michael Hodge. 3. Dr. Leonard Rand. FINAL DIAGNOSES: 1. Acute cholecystitis with gallstone obstructive jaundice. 2. Status post MRCP and then subsequent ERCP with sphincterotomy. 3. Status post laparoscopic cholecystectomy. Procedure was done on April 15, 2020. DISCHARGE MEDICATIONS: 1. Resume home medications. 2. Augmentin 875 mg twice a day for 5 days. 3. Zofran ODT p.r.n. for nausea and vomiting. 4. Tylenol No. 3 p.r.n. for pain. HOSPITAL COURSE: A 80-year-old male, presented to the hospital with jaundice. The patient has severe jaundice with total bilirubin of 10.1. The patient's bilirubin is now 4.7. The patient is status post multiple workup done including ERCP that was done. The patient also now has a laparoscopic cholecystectomy, done by Dr. Leonard Rand as well. The patient is doing much better. He is tolerating clear liquid diet and advance to bland diet in a day or 2. The patient is otherwise stable. No complication. No significant pain. The patient's blood pressure is under control. His home medication was resumed. I advised the patient to resume Plavix on Saturday. The patient will be discharged home today, which is Saturday. The patient is stable. He is eager to go home and I agreed. Lab work as follows. Sodium 140, potassium 3.8, chloride 109 bicarb 21, BUN 12, creatinine 1.0, glucose is 76. Calcium 7.6, total bilirubin 4.7, went down from 10.1. AST was 55, ALT 35, alkaline phosphatase 159, on admission was 336. The patient's albumin level was 2.0. WBC is 6.9, hemoglobin 10.6, hematocrit 33, and platelets 216. Serology; coronavirus disease 2019 PCR negative. Urinalysis otherwise unremarkable. The patient is otherwise stable. He will go home today. FOLLOWUP: Follow up as instructed: 1. Resume home medication. Resume Plavix on Saturday. 2. Prescription given. 3. Clear liquid diet to full liquid diet and then bland diet. 4. Follow up with Dr. Rand and Dr. Raji Gordon within 1 to 2 weeks. Follow up with Dr. Bauer in 1 to 2 weeks. 5. Activity as tolerated and continue with postoperative care. MD SAM Barnhart/SONA /[id number]
[2020-04-16] MEDS: DIGOXIN 0.125 MG TAB PO SCH (10:45)
[2020-04-16] MEDS: NIFEDIPINE CR 30 MG TAB PO SCH (10:45)
[2020-04-16] MEDS: ISOSORBIDE MONONITRATE 20 MG TAB PO SCH (10:45)
--- NOTE | 2020-04-16 11:27 | NUR ---
PATIENT DISCHARGED HOME VIA PRIVATE VEHICLE. PERIPHERAL IV WAS DISCONTINUED WITHOUT RESISTANCE. CATHETER TIP INTACT. DRY DRESSING APPLIED. PATIENT RECEIVED WRITTEN PRESCRIPTIONS, DISCHARGE INSTRUCTIONS TO INCLUDE POST OP LAP JHONNY INSTRUCTIONS, AND EDUCATION MATERIAL. PATIENT VERBALIZED UNDERSTANDING.
== END 2020-04-16 11:27 | disposition home or self-care (01) | DRG 418 ==
LOC: ER 16:40 → ERHOLD 16:49 → MED/SURG 18:36
PROVIDERS: ADMIT Internal Medicine; ATTEND Internal Medicine
PROC: 0FC98ZZ Extirpation of Matter from Common Bile Duct, Via Natural or Artificial Opening Endoscopic (ICD-10-PCS; 2020-04-12)
PROC: 0FCD8ZZ Extirpation of Matter from Pancreatic Duct, Via Natural or Artificial Opening Endoscopic (ICD-10-PCS; 2020-04-12)
PROC: BF141ZZ Fluoroscopy of Gallbladder, Bile Ducts and Pancreatic Ducts using Low Osmolar Contrast (ICD-10-PCS; 2020-04-12)
PROC: 0FT44ZZ Resection of Gallbladder, Percutaneous Endoscopic Approach (ICD-10-PCS; principal; 2020-04-15 12:00)
DX: K80.43 Calculus of bile duct with acute cholecystitis with obstruction (principal); K76.6 Portal hypertension; N39.0 Urinary tract infection, site not specified; E11.9 Type 2 diabetes mellitus without complications; I10 Essential (primary) hypertension; R97.20 Elevated prostate specific antigen [PSA]; I25.10 Atherosclerotic heart disease of native coronary artery without angina pectoris; Z95.1 Presence of aortocoronary bypass graft; Z11.59 Encounter for screening for other viral diseases
CPT/HCPCS: 36415; 43260; 74181; 74328; 76705; 80053; 80076; 81001; 82948; 83690; 85025; 85610; 88304; 93005; 93306; 99284; C1766; J0330; J1170; J1650; J2001; J2270; J2405; J2543; J2710; J3010; J7030

== ENCOUNTER → 2020-09-06 | Outpatient (CLI) | payer OTHER ==
[~2020-09-06] MED LIST changes: +IOPAMIDOL 370 MG/ML 200 ML INFUS..BTL INJ ONE; +NIFEDIPINE ER30 M1 PO; +SODIUM CHLORIDE 0.9% 50ML 50 ML ONE
[2020-09-06 11:29] LABS: CREATININE, SERUM 1.25 mg/dL (0.72-1.25)
== END ==
LOC: NM 10:01
PROVIDERS: ATTEND Urology
DX: C61 Malignant neoplasm of prostate (principal); N20.0 Calculus of kidney
CPT/HCPCS: 36415; 71046; 74178; 78306; 82565; 84520; A9503; A9570; Q9967

== ENCOUNTER → 2020-10-13 | Outpatient (CLI) | payer OTHER ==
[~2020-10-13] MED LIST changes: +FENTANYL CITRATE/PF 100MCG/2 ML INJ ONE; -IOPAMIDOL 370 MG/ML 200 ML INFUS..BTL INJ ONE; +MIDAZOLAM HCL 2 MG/2 ML VIAL ONE; -SODIUM CHLORIDE 0.9% 50ML 50 ML ONE
[2020-10-13 13:26] LABS: INR 0.97; PROTHROMBIN TIME 13.5 seconds (11.9-14.5)
[2020-10-13 15:37] VITALS: BP 126/71
== END ==
LOC: CT 12:42
PROVIDERS: ATTEND Urology
DX: C61 Malignant neoplasm of prostate (principal)
CPT/HCPCS: 20225; 36415; 71101; 77012; 85014; 85049; 85610; 85730; 88305; 88311; 99152; 99153; J2250; J3010; U0002

== ENCOUNTER → 2020-11-22 | Day surgery (SDC) | payer OTHER ==
[2020-11-17 12:35] LABS: BASOPHILS # (AUTO) 0.1 (0.0-0.1); BASOPHILS % 0.9 % (0.0-1.0); EOSINOPHILS # (AUTO) 0.5 (0.0-0.4); EOSINOPHILS % 6.1 % (0.0-6.0); HEMOGLOBIN 14.8 g/dL (14.0-18.0); LYMPHOCYTES # (AUTO) 2.4 (1.0-3.2); LYMPHOCYTES % 30.8 % (18.0-39.1); MEAN CORPUSCULAR HEMOGLOBIN 30.2 pg (28-32); MEAN CORPUSCULAR HGB CONC 32.9 g/dL (31-35); MEAN CORPUSCULAR VOLUME 91.8 fL (81-99); MONOCYTES # (AUTO) 0.6 (0.2-0.8); MONOCYTES % 7.6 % (4.4-11.3); NEUTROPHILS # (AUTO) 4.1 (2.1-6.9); NEUTROPHILS % 54.2 % (38.7-80.0); PLATELET COUNT 143 x10e3/uL (140-360); RED CELL DISTRIBUTION WIDTH 13.8 % (11.7-14.4)
[2020-11-17 12:47] LABS: INR 0.91; PROTHROMBIN TIME 12.8 seconds (11.9-14.5)
[2020-11-17 12:56] LABS: ALBUMIN 3.7 g/dL (3.5-5.0); CALCIUM 9.2 mg/dL (8.4-10.2); CREATININE, SERUM 1.38 mg/dL (0.72-1.25)
[2020-11-22] VITALS (8 sets, daily range): BP systolic 105–124; BP diastolic 50–80
[~2020-11-22] VITALS: Ht 182.9 cm; Wt 88.5 kg
[~2020-11-22] MED LIST changes: +CITRACAL-D3 MA1 EACH PO; +FLOMAX0.4 MG PO; +FUROSEMIDE40 MG PO; +GENTAMICIN SULFATE 40 MG/ML 2 ML VIAL ONE; +IOPAMIDOL 300MG/ML 50ML INFUS..BTL IV ONE; +LEUPROLIDE IM; +LIDOCAINE 1% W/EPINEPHRINE 20 ML VIAL ONE; +METOPROLOL SUCC25 MG PO; +MORPHINE SULFATE INJ 4 MG/ML INJ 1ML ONE; +SODIUM CHLORIDE 0.9% 1000ML 1,000 ML ONE; +SODIUM CHLORIDE 0.9% 500ML 500 ML ONE; +SUPER B-COMPL400 MCG PO; +VANCOMYCIN 1GM/NS 250 ML 500 ML ONE
== END | disposition home or self-care (01) ==
LOC: CATH LAB 10:10
PROVIDERS: ATTEND Internal Medicine
DX: I25.5 Ischemic cardiomyopathy (principal); I25.10 Atherosclerotic heart disease of native coronary artery without angina pectoris; I48.19 Other persistent atrial fibrillation; I25.2 Old myocardial infarction; I11.0 Hypertensive heart disease with heart failure; I50.42 Chronic combined systolic (congestive) and diastolic (congestive) heart failure; R00.1 Bradycardia, unspecified; E78.5 Hyperlipidemia, unspecified; E11.9 Type 2 diabetes mellitus without complications; Z01.812 Encounter for preprocedural laboratory examination; Z20.822 Contact with and (suspected) exposure to COVID-19; Z79.02 Long term (current) use of antithrombotics/antiplatelets
CPT/HCPCS: 33225; 33249; 36415; 71045; 75820; 80053; 85025; 85610; 99152; 99153; C1769; C1777; C1882; C1887; J1580; J2250; J2270; J3010; J3370; J7030; J7040; U0002

== ENCOUNTER 2021-02-02 12:07 | Emergency (ER) | payer OTHER ==
[~2021-02-02] VITALS: Ht 188 cm; Wt 88.5 kg
[~2021-02-02 12:07] MED LIST changes: -FENTANYL CITRATE/PF 100MCG/2 ML INJ ONE; -GENTAMICIN SULFATE 40 MG/ML 2 ML VIAL ONE; -IOPAMIDOL 300MG/ML 50ML INFUS..BTL IV ONE; -LIDOCAINE 1% W/EPINEPHRINE 20 ML VIAL ONE; -MIDAZOLAM HCL 2 MG/2 ML VIAL ONE; -MORPHINE SULFATE INJ 4 MG/ML INJ 1ML ONE; -SODIUM CHLORIDE 0.9% 1000ML 1,000 ML ONE; -SODIUM CHLORIDE 0.9% 500ML 500 ML ONE; -VANCOMYCIN 1GM/NS 250 ML 500 ML ONE
== END 2021-02-02 15:27 | disposition home or self-care (01) ==
LOC: ER 13:40
DX: U07.1 COVID-19 (principal); E11.22 Type 2 diabetes mellitus with diabetic chronic kidney disease; I12.9 Hypertensive chronic kidney disease with stage 1 through stage 4 chronic kidney disease, or unspecified chronic kidney disease; N18.9 Chronic kidney disease, unspecified
CPT/HCPCS: 99283; U0002

== ENCOUNTER 2021-02-04 18:32 | Inpatient (IN) | payer OTHER ==
[~2021-02-04] VITALS: Ht 182.9 cm; Wt 88.5 kg
[2021-02-04] MEDS: ALBUMIN 25% 25GM 100ML 0.25 GM/ML BTL IV ONE ×2 (00:30→23:15)
[2021-02-04 18:55] LABS: BASOPHILS % 0.3 % (0.0-1.0); HEMATOCRIT 43.3 % (38.2-49.6); HEMOGLOBIN 14.7 g/dL (14.0-18.0); LYMPHOCYTES # (AUTO) 0.9 (1.0-3.2); LYMPHOCYTES % 15.2 % (18.0-39.1); MEAN CORPUSCULAR HEMOGLOBIN 30.8 pg (28-32); MEAN CORPUSCULAR HGB CONC 33.9 g/dL (31-35); MEAN CORPUSCULAR VOLUME 90.8 fL (81-99); MONOCYTES # (AUTO) 0.2 (0.2-0.8); MONOCYTES % 2.9 % (4.4-11.3); NEUTROPHILS % 81.1 % (38.7-80.0); PLATELET COUNT 129 x10e3/uL (140-360); RED BLOOD COUNT 4.77 x10e6/uL (4.3-5.7); RED CELL DISTRIBUTION WIDTH 14.7 % (11.7-14.4)
[2021-02-04] MEDS ORDERED: ASPIRIN 81 MG CHEW TAB PO ONE (19:00)
[2021-02-04 19:36] LABS: ALBUMIN 2.5 g/dL (3.5-5.0); ALBUMIN/GLOBULIN RATIO 0.6 (0.8-2.0); CREATININE, SERUM 1.15 mg/dL (0.72-1.25)
[2021-02-04 19:42] LABS: CREATINE KINASE MB 1.4 ng/mL (0-5.0)
[2021-02-04 20:14] LABS: LYMPHOCYTES % (MANUAL) 11 % (19-48); MONOCYTES % (MANUAL) 2 % (3.4-9.0); NEUTROPHILS % (MANUAL) 83 % (40-74); PLATELET ESTIMATE SLIGHTLY DECREASED; PLATELET MORPHOLOGY COMMENT NORMAL; RBC MORPHOLOGY COMMENT NORMAL
[2021-02-04] MEDS ORDERED: POTASSIUM CHLORIDE 20 MEQ TAB CR PO STA (22:06)
[2021-02-04] MEDS ORDERED: REMDESIVIR 100MG/NS 100ML 100 MG in SODIUM CHLORIDE 0.9% 100 ML 100 ML IV SCH (22:15)
[2021-02-04] MEDS: ALBUTEROL SULFATE HFA 8GM INHALATION AEROSOL INH SCH (22:15)
[2021-02-04] MEDS ORDERED: DEXAMETHASONE SOD PHOS 10 MG/1 ML VIAL IV ONE (22:15)
[2021-02-04] MEDS: SODIUM CHLORIDE 0.9% 500ML 500 ML IV ONE (23:15)
[2021-02-04] MEDS: CEFTRIAXONE 1 GM in SODIUM CHLORIDE 0.9% 50ML 50 ML IV SCH (23:15)
[2021-02-05] VITALS (13 sets, daily range): BP systolic 87–99; BP diastolic 56–70
[2021-02-05] MEDS ORDERED: ENOXAPARIN SODIUM INJ 100 MG/ML SYR SC ONE
[2021-02-05] MEDS: ALBUTEROL SULFATE HFA 8GM INHALATION AEROSOL INH SCH ×4 (01:00→19:00)
[2021-02-05] MEDS ORDERED: ACETAMINOPHEN 325 MG TAB PO PRN (04:00)
[2021-02-05] MEDS: SODIUM CHLORIDE 0.9% 500ML 500 ML IV ONE (04:11)
[2021-02-05 06:33] LABS: HEMATOCRIT 36.1 % (38.2-49.6); HEMOGLOBIN 12.2 g/dL (14.0-18.0); LYMPHOCYTES # (AUTO) 0.4 (1.0-3.2); LYMPHOCYTES % 9.1 % (18.0-39.1); MEAN CORPUSCULAR HEMOGLOBIN 30.7 pg (28-32); MEAN CORPUSCULAR HGB CONC 33.8 g/dL (31-35); MEAN CORPUSCULAR VOLUME 90.9 fL (81-99); MONOCYTES # (AUTO) 0.1 (0.2-0.8); MONOCYTES % 2.5 % (4.4-11.3); NEUTROPHILS # (AUTO) 3.8 (2.1-6.9); NEUTROPHILS % 87.5 % (38.7-80.0); PLATELET COUNT 109 x10e3/uL (140-360); RED BLOOD COUNT 3.97 x10e6/uL (4.3-5.7); RED CELL DISTRIBUTION WIDTH 14.6 % (11.7-14.4)
[2021-02-05 06:36] LABS: INR 1.16
[2021-02-05 06:37] LABS: PARTIAL THROMBOPLASTIN TIME 39.3 seconds (23.8-35.5)
[2021-02-05 06:47] LABS: ALBUMIN 2.6 g/dL (3.5-5.0); ALBUMIN/GLOBULIN RATIO 0.7 (0.8-2.0); ANION GAP 16.2 mmol/L (8-16); CALCIUM 8.1 mg/dL (8.4-10.2); CREATININE, SERUM 1.1 mg/dL (0.72-1.25); POTASSIUM 3.2 mmol/L (3.5-5.1)
[2021-02-05 06:49] LABS: CALCIUM IONIZED 1.1 mmol/L (1.09-1.30)
[2021-02-05 06:58] LABS: PHOSPHORUS 2.9 MG/DL (2.3-4.7)
[2021-02-05 06:59] LABS: CLARITY,URINE SL CLOUDY (CLEAR); COLOR,URINE AMBER (YELLOW); KETONES,URINE TRACE (NEGATIVE); LEUKOCYTE ESTERASE ,URINE NEGATIVE (NEGATIVE); NITRITE,URINE NEGATIVE (NEGATIVE); PROTEIN,URINE DIPSTICK 2+ (NEGATIVE); URINE UROBILINOGEN 1 mg/dL (0.2 - 1)
[2021-02-05 07:14] LABS: BACTERIA,URINE FEW /HPF
[2021-02-05] MEDS ORDERED: DEXAMETHASONE SOD PHOS 10 MG/1 ML VIAL IV SCH (09:00)
[2021-02-05] MEDS: FINASTERIDE 5 MG TAB PO SCH (09:03)
[2021-02-05] MEDS: ALLOPURINOL 100 MG TAB PO SCH (09:03)
[2021-02-05] MEDS: CLOPIDOGREL BISULFATE 75 MG TAB PO SCH (09:03)
[2021-02-05] MEDS: CEFTRIAXONE 1 GM in SODIUM CHLORIDE 0.9% 50ML 50 ML IV SCH (09:03)
[2021-02-05] MEDS: TAMSULOSIN HCL 0.4 MG CAP PO SCH (09:03)
[2021-02-05] MEDS ORDERED: ENOXAPARIN 30 MG/0.3 ML SYR SC SCH ×3 (17:00)
[2021-02-05] MEDS ORDERED: DEXTROSE 50% SYRINGE 50 ML IV PRN (21:15)
[2021-02-06] VITALS (7 sets, daily range): BP systolic 94–100; BP diastolic 66–74
[2021-02-06] MEDS: INSULIN LISPRO 100 UNIT/1 ML 3ML VIAL SQ SCH ×5 (00:03→21:00)
[2021-02-06] MEDS: ALBUTEROL SULFATE HFA 8GM INHALATION AEROSOL INH SCH ×3 (00:17→13:00)
[2021-02-06 07:04] LABS: BASOPHILS % 0.1 % (0.0-1.0); HEMATOCRIT 37.1 % (38.2-49.6); HEMOGLOBIN 12.5 g/dL (14.0-18.0); LYMPHOCYTES # (AUTO) 0.7 (1.0-3.2); LYMPHOCYTES % 8.7 % (18.0-39.1); MEAN CORPUSCULAR HEMOGLOBIN 30.7 pg (28-32); MEAN CORPUSCULAR HGB CONC 33.7 g/dL (31-35); MEAN CORPUSCULAR VOLUME 91.2 fL (81-99); MONOCYTES # (AUTO) 0.3 (0.2-0.8); MONOCYTES % 3.3 % (4.4-11.3); NEUTROPHILS # (AUTO) 7.3 (2.1-6.9); NEUTROPHILS % 87.1 % (38.7-80.0); PLATELET COUNT 149 x10e3/uL (140-360); RED BLOOD COUNT 4.07 x10e6/uL (4.3-5.7); RED CELL DISTRIBUTION WIDTH 14.9 % (11.7-14.4)
[2021-02-06 07:26] LABS: ALBUMIN 2.4 g/dL (3.5-5.0); ALBUMIN/GLOBULIN RATIO 0.7 (0.8-2.0); ANION GAP 16.1 mmol/L (8-16); CALCIUM 7.8 mg/dL (8.4-10.2); CREATININE, SERUM 1.02 mg/dL (0.72-1.25); POTASSIUM 3.1 mmol/L (3.5-5.1)
[2021-02-06] MEDS ORDERED: POTASSIUM CHLORIDE 10MEQ EA PO ONE (08:30)
[2021-02-06] MEDS: CEFTRIAXONE 1 GM in SODIUM CHLORIDE 0.9% 50ML 50 ML IV SCH (09:28)
[2021-02-06] MEDS: CLOPIDOGREL BISULFATE 75 MG TAB PO SCH (09:29)
[2021-02-06] MEDS: DEXAMETHASONE 4 MG TAB PO SCH (09:29)
[2021-02-06] MEDS: ALLOPURINOL 100 MG TAB PO SCH (09:29)
[2021-02-06] MEDS: FINASTERIDE 5 MG TAB PO SCH (09:29)
[2021-02-06] MEDS: TAMSULOSIN HCL 0.4 MG CAP PO SCH (09:29)
[2021-02-06] MEDS: ENOXAPARIN SOD INJ 40 MG/0.4 ML SYR SC SCH ×2 (10:32→21:02)
[2021-02-07] VITALS (9 sets, daily range): BP systolic 97–136; BP diastolic 63–78
[2021-02-07 05:28] LABS: BASOPHILS % 0.2 % (0.0-1.0); HEMATOCRIT 37.3 % (38.2-49.6); HEMOGLOBIN 12.7 g/dL (14.0-18.0); LYMPHOCYTES # (AUTO) 0.7 (1.0-3.2); LYMPHOCYTES % 6.3 % (18.0-39.1); MEAN CORPUSCULAR HEMOGLOBIN 30.9 pg (28-32); MEAN CORPUSCULAR VOLUME 90.8 fL (81-99); MONOCYTES # (AUTO) 0.2 (0.2-0.8); MONOCYTES % 1.8 % (4.4-11.3); NEUTROPHILS # (AUTO) 9.3 (2.1-6.9); NEUTROPHILS % 90.1 % (38.7-80.0); PLATELET COUNT 196 x10e3/uL (140-360); RED BLOOD COUNT 4.11 x10e6/uL (4.3-5.7); RED CELL DISTRIBUTION WIDTH 14.7 % (11.7-14.4)
[2021-02-07 06:26] LABS: ALBUMIN 2.4 g/dL (3.5-5.0); ALBUMIN/GLOBULIN RATIO 0.7 (0.8-2.0); ANION GAP 16.5 mmol/L (8-16); CREATININE, SERUM 0.95 mg/dL (0.72-1.25); POTASSIUM 3.5 mmol/L (3.5-5.1)
[2021-02-07] MEDS: ALBUTEROL SULFATE HFA 8GM INHALATION AEROSOL INH SCH ×3 (07:00→19:00)
[2021-02-07] MEDS: INSULIN LISPRO 100 UNIT/1 ML 3ML VIAL SQ SCH ×4 (07:28→20:36)
[2021-02-07 08:46] LABS: LYMPHOCYTES % (MANUAL) 2 % (19-48); MONOCYTES % (MANUAL) 1 % (3.4-9.0); NEUTROPHILS % (MANUAL) 96 % (40-74); PLATELET ESTIMATE ADEQUATE; PLATELET MORPHOLOGY COMMENT NORMAL
[2021-02-07 08:47] LABS: RBC MORPHOLOGY COMMENT NORMAL
[2021-02-07] MEDS: ALLOPURINOL 100 MG TAB PO SCH (08:47)
[2021-02-07] MEDS: ENOXAPARIN SOD INJ 40 MG/0.4 ML SYR SC SCH ×2 (08:47→20:42)
[2021-02-07] MEDS: TAMSULOSIN HCL 0.4 MG CAP PO SCH (08:47)
[2021-02-07] MEDS: DEXAMETHASONE 4 MG TAB PO SCH (08:47)
[2021-02-07] MEDS: CLOPIDOGREL BISULFATE 75 MG TAB PO SCH (08:47)
[2021-02-07] MEDS: FINASTERIDE 5 MG TAB PO SCH (08:47)
[2021-02-07] MEDS: CEFTRIAXONE 1 GM in SODIUM CHLORIDE 0.9% 50ML 50 ML IV SCH (08:47)
[2021-02-07] MEDS ORDERED: MAGNESIUM SULF 1GRAM/DEXTROSE 100 ML IV ONE (09:30)
[2021-02-07] MEDS ORDERED: POTASSIUM CHLORIDE 20 MEQ TAB CR PO ONE (09:40)
[2021-02-07] MEDS ORDERED: FUROSEMIDE INJ 10 MG/ML 4 ML VIAL IV SCH (11:00)
[2021-02-07] MEDS ORDERED: REMDESIVIR 100MG/NS 100ML 100 MG in SODIUM CHLORIDE 0.9% 100 ML 100 ML IV SCH (14:15)
[2021-02-07] MEDS ORDERED: REMDESIVIR 200MG/NS 100ML 200 MG in SODIUM CHLORIDE 0.9% 100 ML 100 ML IV ONE (14:30)
[2021-02-07] MEDS ORDERED: SODIUM CHLORIDE 0.9% 250ML 250 ML ONE (15:49)
[2021-02-07] MEDS ORDERED: METOPROLOL TARTRATE INJ 1 MG/ML VIAL ONE (23:55)
[2021-02-08] VITALS (11 sets, daily range): BP systolic 100–127; BP diastolic 52–102
[2021-02-08] MEDS ORDERED: METOPROLOL TARTRATE INJ 1 MG/ML VIAL IV ONE
[2021-02-08] MEDS ORDERED: LEVALBUTEROL 15 GM AERO IH PRN (00:15)
[2021-02-08] MEDS: LORAZEPAM INJ 2 MG/ML VIAL IV PRN ×2 (00:29→04:00)
[2021-02-08] MEDS: IPRATROPIUM BROMIDE INHALER 12.9 GM INH INH SCH ×3 (01:00→13:00)
[2021-02-08] MEDS: ALTEPLASE RECOMBINANT 2 MG/2 ML VIAL IV PRN ×2 (01:15→05:26)
[2021-02-08] MEDS ORDERED: DEXMEDETOMIDINE 200MCG/NS 50ML 50 ML IV SCH (02:45)
[2021-02-08] MEDS ORDERED: PIPERACILLIN/TAZOBACTAM 3.375 GM in SODIUM CHLORIDE 0.9% 50ML 50 ML IV ONE (03:15)
[2021-02-08] MEDS ORDERED: ACETAMINOPHEN 1000 MG/100 ML IV PRN (03:15)
[2021-02-08] MEDS ORDERED: VANCOMYCIN HCL 1GM/NS 250 ML BAG IV ONE (03:15)
[2021-02-08] MEDS ORDERED: Vancomycin IV 1 GM in SODIUM CHLORIDE 0.9% 250ML 250 ML IV ONE (03:30)
[2021-02-08 03:58] LABS: CLARITY,URINE CLEAR (CLEAR); COLOR,URINE YELLOW (YELLOW); KETONES,URINE TRACE (NEGATIVE); LEUKOCYTE ESTERASE ,URINE NEGATIVE (NEGATIVE); NITRITE,URINE NEGATIVE (NEGATIVE); PROTEIN,URINE DIPSTICK NEGATIVE (NEGATIVE)
[2021-02-08 04:01] LABS: BACTERIA,URINE FEW /HPF; EPITHELIAL CELLS,URINE RARE /LPF; RBC,URINE 0-5 /HPF (0-5); WBC,URINE (MAN) 0-5 /HPF (0-5)
[2021-02-08] MEDS ORDERED: SODIUM CHLORIDE 0.9% 1000ML 1,000 ML ONE (04:16)
[2021-02-08] MEDS ORDERED: ACETAMINOPHEN 1000 MG/100 ML 100 ML IV ONE (04:45)
[2021-02-08 04:52] LABS: BASOPHILS # (AUTO) 0.1 (0.0-0.1); BASOPHILS % 0.5 % (0.0-1.0); EOSINOPHILS % 0.1 % (0.0-6.0); HEMATOCRIT 42.9 % (38.2-49.6); HEMOGLOBIN 14.3 g/dL (14.0-18.0); LYMPHOCYTES # (AUTO) 0.6 (1.0-3.2); LYMPHOCYTES % 5.3 % (18.0-39.1); MEAN CORPUSCULAR HEMOGLOBIN 30.9 pg (28-32); MEAN CORPUSCULAR HGB CONC 33.3 g/dL (31-35); MEAN CORPUSCULAR VOLUME 92.7 fL (81-99); MONOCYTES # (AUTO) 0.2 (0.2-0.8); MONOCYTES % 1.3 % (4.4-11.3); NEUTROPHILS # (AUTO) 10.7 (2.1-6.9); NEUTROPHILS % 90.1 % (38.7-80.0); PLATELET COUNT 195 x10e3/uL (140-360); RED BLOOD COUNT 4.63 x10e6/uL (4.3-5.7); RED CELL DISTRIBUTION WIDTH 14.8 % (11.7-14.4)
[2021-02-08] MEDS ORDERED: SODIUM CHLORIDE 0.9% 250ML 250 ML ONE (04:54)
[2021-02-08 05:20] LABS: ALBUMIN 2.6 g/dL (3.5-5.0); ALBUMIN/GLOBULIN RATIO 0.6 (0.8-2.0); ANION GAP 21.9 mmol/L (8-16); CALCIUM 8.7 mg/dL (8.4-10.2); CREATININE, SERUM 1.25 mg/dL (0.72-1.25); POTASSIUM 3.9 mmol/L (3.5-5.1)
[2021-02-08] MEDS: LEVALBUTEROL 15 GM AERO IH SCH ×2 (06:00→12:00)
[2021-02-08] MEDS: INSULIN LISPRO 100 UNIT/1 ML 3ML VIAL SQ SCH ×3 (07:30→17:00)
[2021-02-08 07:33] LABS: ABG HCO3 24 mmol/L (22-26); ABG PCO2 28 mmHg (35-45); ABG PH 7.54 (7.35-7.45); ABG PO2 110 mmHg (80-105); ABG TCO2 25
[2021-02-08] MEDS: FINASTERIDE 5 MG TAB PO SCH (09:00)
[2021-02-08] MEDS: TAMSULOSIN HCL 0.4 MG CAP PO SCH (09:00)
[2021-02-08] MEDS ORDERED: DEXAMETHASONE SOD PHOS INJ 4 MG/ML VIAL IV SCH (09:00)
[2021-02-08] MEDS: ALLOPURINOL 100 MG TAB PO SCH (09:00)
[2021-02-08] MEDS: CLOPIDOGREL BISULFATE 75 MG TAB PO SCH (09:00)
[2021-02-08] MEDS ORDERED: INSULIN GLARGINE 100 UNITS/ML VIAL SQ ONE (09:15)
[2021-02-08] MEDS: ENOXAPARIN SOD INJ 40 MG/0.4 ML SYR SC SCH (10:08)
[2021-02-08 10:13] LABS: BLAST CELLS % MANUAL 2; LYMPHOCYTES % (MANUAL) 4 % (19-48); NEUTROPHILS % (MANUAL) 92 % (40-74)
[2021-02-08 10:14] LABS: PLATELET ESTIMATE ADEQUATE; PLATELET MORPHOLOGY COMMENT NORMAL; RBC MORPHOLOGY COMMENT NORMAL
[2021-02-08] MEDS ORDERED: PIPERACILLIN/TAZOBACTAM 3.375 GM in SODIUM CHLORIDE 0.9% 50ML 50 ML IV SCH (12:00)
[2021-02-08] MEDS ORDERED: NOREPINEPHRINE 8 MG/D5W 250 ML 250 ML IV SCH (12:45)
[2021-02-08] MEDS ORDERED: FENTANYL 2000MCG/NS 250 250 ML IV SCH (13:00)
[2021-02-08] MEDS ORDERED: MIDAZOLAM HCL 5MG/ML 10ML VIAL 100 ML IV PRN (13:00)
[2021-02-08] MEDS ORDERED: SODIUM CHLORIDE 0.9% 500ML 500 ML ONE (13:12)
[2021-02-08] MEDS ORDERED: REMDESIVIR 100MG/NS 100ML 100 MG in SODIUM CHLORIDE 0.9% 100 ML 100 ML IV SCH (14:30)
[2021-02-08 15:55] LABS: ABG HCO3 28 mmol/L (22-26); ABG PCO2 41 mmHg (35-45); ABG PH 7.44 (7.35-7.45); ABG PO2 222 mmHg (80-105); ABG TCO2 29
[2021-02-08] MEDS ORDERED: INSULIN GLARGINE 100 UNITS/ML VIAL SQ SCH (21:00)
== END 2021-02-08 18:00 | disposition short-term general hospital (02) | DRG 871 ==
LOC: ER 18:49 → ERHOLD 19:24 → IMCU 02-06 12:18
PROVIDERS: ADMIT Internal Medicine; ATTEND Internal Medicine
PROC: XW043E5 Introduction of Remdesivir Anti-infective into Central Vein, Percutaneous Approach, New Technology Group 5 (ICD-10-PCS; 2021-02-04)
PROC: 02HV33Z Insertion of Infusion Device into Superior Vena Cava, Percutaneous Approach (ICD-10-PCS; 2021-02-04)
PROC: 8E0ZXY6 Isolation (ICD-10-PCS; 2021-02-04)
PROC: 0BH17EZ Insertion of Endotracheal Airway into Trachea, Via Natural or Artificial Opening (ICD-10-PCS; principal; 2021-02-08)
PROC: 5A1935Z Respiratory Ventilation, Less than 24 Consecutive Hours (ICD-10-PCS; 2021-02-08)
PROC: 02HV33Z Insertion of Infusion Device into Superior Vena Cava, Percutaneous Approach (ICD-10-PCS; 2021-02-08)
DX: A41.89 Other specified sepsis (principal); U07.1 COVID-19; J12.82 Pneumonia due to coronavirus disease 2019; J96.01 Acute respiratory failure with hypoxia; J15.9 Unspecified bacterial pneumonia; G93.41 Metabolic encephalopathy; R65.21 Severe sepsis with septic shock; I13.0 Hypertensive heart and chronic kidney disease with heart failure and stage 1 through stage 4 chronic kidney disease, or unspecified chronic kidney disease; Z95.0 Presence of cardiac pacemaker; K21.9 Gastro-esophageal reflux disease without esophagitis; I25.5 Ischemic cardiomyopathy; I25.10 Atherosclerotic heart disease of native coronary artery without angina pectoris; I25.2 Old myocardial infarction; Z85.46 Personal history of malignant neoplasm of prostate; E78.5 Hyperlipidemia, unspecified; N18.9 Chronic kidney disease, unspecified; I50.9 Heart failure, unspecified
CPT/HCPCS: 31500; 36415; 36569; 36571; 36600; 71045; 76705; 80053; 81001; 82550; 82553; 82805; 82948; 83735; 83880; 84100; 84484; 85025; 85610; 85730; 86140; 87040; 87086; 93005; 94002; 94660; 94664; 99251; 99285; J0456; J0696; J1100; J1650; J1815; J1940; J2060; J2543; J2997; J3370; J3475; J7030; J7040; J7050; U0002